=== PATIENT | male | born 1935 | race Caucasian/White ===

== ENCOUNTER → 2016-02-28 | Outpatient (CLI) | payer MEDICARE, BC ==
[~2016-02-28] MED LIST: AMBIEN5 M1 PO; ANTIVERT PO; CARVEDILOL6.25 MG PO; COLCHICINE PO; FUROSEMIDE20 MG PO; INDOCIN25 MG PO; LEVOTHYROXINE PO; LISINOPRIL10 MG PO; METFORMIN500 MG PO; OMEPRAZOLE20 MG PO; SIMVASTATIN20 MG PO; TRAZADONE HYDR100 MG PO; [UNRECOGNIZED DRUG - OTHER] PO
== END ==
LOC: LAB 08:48
DX: E11.9 Type 2 diabetes mellitus without complications (principal); N40.0 Benign prostatic hyperplasia without lower urinary tract symptoms; I10 Essential (primary) hypertension; E78.2 Mixed hyperlipidemia; E03.4 Atrophy of thyroid (acquired)

== ENCOUNTER → 2016-08-06 | Outpatient (CLI) | payer MEDICARE, BC ==
[2015-09-24 13:14] VITALS: BP 146/78
== END ==
LOC: LAB 10:11
DX: R53.82 Chronic fatigue, unspecified (principal)

== ENCOUNTER → 2016-09-02 | Outpatient (CLI) | payer MEDICARE, BC ==
[2015-09-24 13:14] VITALS: BP 146/78
== END ==
LOC: LAB 09:00
DX: E11.9 Type 2 diabetes mellitus without complications (principal); E78.2 Mixed hyperlipidemia; Z12.5 Encounter for screening for malignant neoplasm of prostate; E03.4 Atrophy of thyroid (acquired); M1A.9XX0 Chronic gout, unspecified, without tophus (tophi); N52.03 Combined arterial insufficiency and corporo-venous occlusive erectile dysfunction; I10 Essential (primary) hypertension; R20.2 Paresthesia of skin

== ENCOUNTER → 2016-09-27 | Outpatient (CLI) | payer MEDICARE, BC ==
[2015-09-24 13:14] VITALS: BP 146/78
== END ==
LOC: LAB 10:34
DX: E29.1 Testicular hypofunction (principal)

== ENCOUNTER → 2016-10-02 | Outpatient (CLI) | payer MEDICARE, BC ==
[2015-09-24 13:14] VITALS: BP 146/78
== END ==
LOC: CARDREHAB 08:36
DX: G47.33 Obstructive sleep apnea (adult) (pediatric) (principal); G47.10 Hypersomnia, unspecified; R06.83 Snoring; G47.36 Sleep related hypoventilation in conditions classified elsewhere; E66.3 Overweight; Z68.25 Body mass index [BMI] 25.0-25.9, adult
CPT/HCPCS: G0399

== ENCOUNTER → 2016-10-02 | Outpatient (CLI) | payer MEDICARE, BC ==
[2015-09-24 13:14] VITALS: BP 146/78
== END ==
LOC: RAD 13:00
DX: J43.8 Other emphysema (principal)

== ENCOUNTER → 2016-11-08 | Outpatient (CLI) | payer MEDICARE, BC ==
[2015-09-24 13:14] VITALS: BP 146/78
== END ==
LOC: CARDREHAB 10:45
DX: I25.10 Atherosclerotic heart disease of native coronary artery without angina pectoris (principal); R06.02 Shortness of breath
CPT/HCPCS: A9500

== ENCOUNTER → 2016-11-11 | Outpatient (CLI) | payer MEDICARE, BC ==
[2015-09-24 13:14] VITALS: BP 146/78
== END ==
LOC: RAD 12:00
DX: I25.10 Atherosclerotic heart disease of native coronary artery without angina pectoris (principal); R06.02 Shortness of breath; Z95.0 Presence of cardiac pacemaker; I34.0 Nonrheumatic mitral (valve) insufficiency; I07.1 Rheumatic tricuspid insufficiency

== ENCOUNTER → 2017-02-19 | Outpatient (CLI) | payer MEDICARE, BC ==
[2015-09-24 13:14] VITALS: BP 146/78
== END ==
LOC: RAD 12:09
DX: J06.9 Acute upper respiratory infection, unspecified (principal); R05 Cough; J98.4 Other disorders of lung

== ENCOUNTER → 2017-02-27 | Outpatient (CLI) | payer MEDICARE, BC ==
[2015-09-24 13:14] VITALS: BP 146/78
[2017-02-27 11:48] LABS: ALBUMIN 3.9 g/dL (3.5-5.0); BUN/CREATININE RATIO 16.6 (6.0-26.0); CALCIUM 9.3 mg/dL (8.4-10.2); POTASSIUM 4.2 mmol/L (3.6-5.0); TOTAL BILIRUBIN 0.7 mg/dL (0.2-1.3); TOTAL PROTEIN 7.3 g/dL (6.3-8.2)
[2017-02-27 12:29] LABS: HEMATOCRIT 46.2 % (42.0-52.0); HEMOGLOBIN 14.9 g/dL (13.5-18.0); MEAN CELL VOLUME 89 fl (78-100); MEAN CORPUSCULAR HEMOGLOBIN 29 pg (27-31); MEAN CORPUSCULAR HGB CONC 32 g/dL (33-37); MEAN PLATELET VOLUME 10.8 fl (7.4-10.4); PLATELET COUNT 220 K/mm3 (130-400); RED BLOOD COUNT 5.17 M/mm3 (4.20-5.60); RED CELL DISTRIBUTION WIDTH 14.1 % (11.5-14.5); WHITE BLOOD COUNT 6.1 K/mm3 (4.8-10.8)
[2017-02-27 12:30] LABS: LYMPHOCYTE 52 % (20-51); MONOCYTE 9 % (3-10); NEUTROPHILS 38 % (42-75)
== END ==
LOC: LAB 11:06
PROVIDERS: Internal Medicine
DX: E11.9 Type 2 diabetes mellitus without complications (principal); J98.4 Other disorders of lung; G47.33 Obstructive sleep apnea (adult) (pediatric)

== ENCOUNTER → 2017-10-21 | Outpatient (CLI) | payer MEDICARE, BC ==
[2015-09-24 13:14] VITALS: BP 146/78
[2017-10-21 10:05] LABS: EOS # 0.1 (0.04-0.40); EOS % 1.6 % (0.0-4.0); HEMATOCRIT 46.6 % (42.0-52.0); HEMOGLOBIN 15.4 g/dL (13.5-18.0); LYMPH# 3.3 (1.50-4.00); MEAN CELL VOLUME 89 fl (78-100); MEAN CORPUSCULAR HEMOGLOBIN 29 pg (27-31); MEAN CORPUSCULAR HGB CONC 33 g/dL (33-37); MEAN PLATELET VOLUME 10.3 fl (7.4-10.4); NEU # 4.2 (1.40-6.50); PLATELET COUNT 212 K/mm3 (130-400); RED BLOOD COUNT 5.24 M/mm3 (4.20-5.60); RED CELL DISTRIBUTION WIDTH 14.8 % (11.5-14.5); WHITE BLOOD COUNT 8.7 K/mm3 (4.8-10.8)
[2017-10-21 10:19] LABS: ALBUMIN 4.2 g/dL (3.5-5.0); POTASSIUM 4.1 mmol/L (3.6-5.0); TOTAL BILIRUBIN 0.5 mg/dL (0.2-1.3); TOTAL PROTEIN 7.4 g/dL (6.3-8.2)
[2017-10-21 10:48] LABS: ERYTHROCYTE SEDIMENTATION RATE 3 mm/hr (0-20)
[2017-10-21 11:03] LABS: URINE APPEARANCE CLEAR; URINE BILIRUBIN NEGATIVE (NEGATIVE); URINE BLOOD NEGATIVE (NEGATIVE); URINE COLOR YELLOW; URINE GLUCOSE NEGATIVE (NEGATIVE); URINE KETONE NEGATIVE (NEGATIVE); URINE LEUKOCYTE ESTERASE NEGATIVE (NEGATIVE); URINE NITRATE NEGATIVE (NEGATIVE); URINE PROTEIN(semi-quant) NEGATIVE (NEGATIVE); URINE UROBILINOGEN NORMAL (NORMAL); URINE WBC 0-1 /hpf (0-3)
[2017-10-22] LABS: TESTOSTERONE 167 ng/dL (221-716)
== END ==
LOC: LAB 09:50
PROVIDERS: Internal Medicine
DX: E11.9 Type 2 diabetes mellitus without complications (principal); I10 Essential (primary) hypertension; I45.3 Trifascicular block; E03.9 Hypothyroidism, unspecified; M10.9 Gout, unspecified

== ENCOUNTER 2018-01-08 11:00 | Outpatient (RCR) | payer MEDICARE, BC ==
[2015-09-24 13:14] VITALS: BP 146/78
== END 2018-01-08 11:30 | disposition home or self-care (01) ==
LOC: OT 11:00
DX: G56.01 Carpal tunnel syndrome, right upper limb (principal); G56.21 Lesion of ulnar nerve, right upper limb; R20.0 Anesthesia of skin

== ENCOUNTER → 2018-01-13 | Outpatient (CLI) | payer MEDICARE, BC ==
[2015-09-24 13:14] VITALS: BP 146/78
[2018-01-13 10:46] LABS: CALCIUM 9.2 mg/dL (8.4-10.2); POTASSIUM 4.5 mmol/L (3.6-5.0)
== END ==
LOC: RAD 10:17
PROVIDERS: Internal Medicine
DX: Q61.02 Congenital multiple renal cysts (principal); D35.02 Benign neoplasm of left adrenal gland; N28.89 Other specified disorders of kidney and ureter; E11.9 Type 2 diabetes mellitus without complications
CPT/HCPCS: Q9965

== ENCOUNTER 2018-01-25 10:17 | Emergency (ER) | payer MEDICARE, BC ==
[~2018-01-25] VITALS: Ht 182.9 cm; Wt 92.8 kg
[2018-01-25] MEDS ORDERED: KLONOPIN 1MG1 MG PO (10:27)
[2018-01-25] MEDS ORDERED: MYSOLINE50 M1 PO (10:27)
[2018-01-25] MEDS ORDERED: PRINIVIL10 M1 PO (10:28)
[2018-01-25] MEDS ORDERED: CEFDINIR300 MG PO (10:29)
[2018-01-25 10:49] LABS: HEMATOCRIT 42.8 % (42.0-52.0); HEMOGLOBIN 14.3 g/dL (13.5-18.0); MEAN CELL VOLUME 88 fl (78-100); MEAN CORPUSCULAR HEMOGLOBIN 30 pg (27-31); MEAN CORPUSCULAR HGB CONC 33 g/dL (33-37); MEAN PLATELET VOLUME 10.4 fl (7.4-10.4); PLATELET COUNT 205 K/mm3 (130-400); RED BLOOD COUNT 4.85 M/mm3 (4.20-5.60); RED CELL DISTRIBUTION WIDTH 14.1 % (11.5-14.5); WHITE BLOOD COUNT 8.1 K/mm3 (4.8-10.8)
[2018-01-25 11:00] LABS: ALBUMIN 3.8 g/dL (3.5-5.0); CALCIUM 8.7 mg/dL (8.4-10.2); POTASSIUM 3.6 mmol/L (3.6-5.0); TOTAL BILIRUBIN 0.6 mg/dL (0.2-1.3); TOTAL PROTEIN 6.4 g/dL (6.3-8.2)
[2018-01-25 11:13] LABS: LYMPHOCYTE 30 % (20-51); MONOCYTE 9 % (3-10); NEUTROPHILS 61 % (42-75)
[2018-01-25 11:18] LABS: URINE APPEARANCE CLEAR; URINE BILIRUBIN NEGATIVE (NEGATIVE); URINE BLOOD NEGATIVE (NEGATIVE); URINE COLOR YELLOW; URINE GLUCOSE NEGATIVE (NEGATIVE); URINE KETONE NEGATIVE (NEGATIVE); URINE LEUKOCYTE ESTERASE NEGATIVE (NEGATIVE); URINE MUCUS PRESENT (NOT PRESENT); URINE NITRATE NEGATIVE (NEGATIVE); URINE PROTEIN(semi-quant) TRACE mg/dL (NEGATIVE); URINE UROBILINOGEN NORMAL (NORMAL); URINE WBC 0-1 /hpf (0-3)
[2018-01-25 12:10] VITALS: BP 135/65
== END 2018-01-25 12:05 | disposition home or self-care (01) ==
LOC: ED 10:17
PROVIDERS: Family Medicine
DX: R53.83 Other fatigue (principal); R53.81 Other malaise; R05 Cough; I10 Essential (primary) hypertension; M10.9 Gout, unspecified; G47.30 Sleep apnea, unspecified; Z95.0 Presence of cardiac pacemaker; Z79.899 Other long term (current) drug therapy; K42.9 Umbilical hernia without obstruction or gangrene

== ENCOUNTER → 2018-03-27 | Outpatient (CLI) | payer MEDICARE, BC ==
[~2018-03-27] MED LIST changes: +CEFDINIR300 MG PO; +KLONOPIN 1MG1 MG PO; +MYSOLINE50 M1 PO; +PRINIVIL10 M1 PO
== END ==
LOC: LAB 09:52
DX: E29.1 Testicular hypofunction (principal)

== ENCOUNTER → 2018-04-15 | Outpatient (CLI) | payer MEDICARE, BC ==
[2018-04-16 00:10] LABS: FOLATE (FOLIC ACID) 6.7 ng/mL (7.0-31.4)
== END ==
LOC: LAB 09:01
PROVIDERS: Psychiatry & Neurology Neurology
DX: G56.03 Carpal tunnel syndrome, bilateral upper limbs (principal); G56.21 Lesion of ulnar nerve, right upper limb; G60.9 Hereditary and idiopathic neuropathy, unspecified

== ENCOUNTER 2018-04-26 10:19 | Outpatient (RCR) | payer MEDICARE, BC ==
[2018-04-25 10:52] VITALS: BP 172/86
[~2018-04-26] VITALS: Ht 182.9 cm; Wt 92.8 kg
[~2018-04-26 10:19] MED LIST changes: +COENZYME Q10100 M1 PO; +FISH OIL1 IU PO
[2018-04-26 10:20] VITALS: BP 143/85
== END 2018-04-26 15:00 | disposition home or self-care (01) ==
LOC: AMSURD 10:19
DX: E53.8 Deficiency of other specified B group vitamins (principal)
CPT/HCPCS: J3420

== ENCOUNTER 2018-05-07 13:00 | Outpatient (RCR) | payer MEDICARE, BC | END 2018-05-07 13:30 | disposition still patient (30) | LOC: OT 13:00 | DX: G56.21 Lesion of ulnar nerve, right upper limb (principal) ==

== ENCOUNTER → 2018-06-25 | Outpatient (CLI) | payer MEDICARE, BC ==
[2018-06-25 12:14] LABS: ALBUMIN 4.2 g/dL (3.5-5.0); CALCIUM 9.3 mg/dL (8.4-10.2); POTASSIUM 4.6 mmol/L (3.6-5.0); TOTAL BILIRUBIN 0.5 mg/dL (0.2-1.3); TOTAL PROTEIN 7.3 g/dL (6.3-8.2)
== END ==
LOC: LAB 11:12
PROVIDERS: Internal Medicine
DX: E11.9 Type 2 diabetes mellitus without complications (principal); I10 Essential (primary) hypertension; E29.1 Testicular hypofunction; I45.3 Trifascicular block

== ENCOUNTER → 2018-10-15 | Outpatient (CLI) | payer MEDICARE, BC ==
[2018-10-15 10:39] LABS: BASO # 0.1 (0.02-0.10); EOS # 0.2 (0.04-0.40); EOS % 2.4 % (0.0-4.0); HEMATOCRIT 44.4 % (42.0-52.0); HEMOGLOBIN 14.5 g/dL (13.5-18.0); MEAN CELL VOLUME 90 fl (78-100); MEAN CORPUSCULAR HEMOGLOBIN 29 pg (27-31); MEAN CORPUSCULAR HGB CONC 33 g/dL (33-37); MEAN PLATELET VOLUME 10.1 fl (7.4-10.4); MONO # 0.9 (0.20-0.80); NEU # 4.6 (1.40-6.50); PLATELET COUNT 226 K/mm3 (130-400); RED BLOOD COUNT 4.96 M/mm3 (4.20-5.60); RED CELL DISTRIBUTION WIDTH 16.2 % (11.5-14.5); WHITE BLOOD COUNT 8.8 K/mm3 (4.8-10.8)
[2018-10-15 10:42] LABS: ALBUMIN 3.8 g/dL (3.4-4.8); POTASSIUM 4.1 mmol/L (3.5-5.1)
[2018-10-15 10:43] LABS: CALCIUM 9.1 mg/dL (8.3-10.5)
[2018-10-15 10:45] LABS: TOTAL PROTEIN 7.3 g/dL (6.2-8.1)
[2018-10-15 10:46] LABS: TOTAL BILIRUBIN 0.6 mg/dL (0.2-1.2)
[2018-10-15 10:47] LABS: URINE APPEARANCE CLEAR; URINE BILIRUBIN NEGATIVE (NEGATIVE); URINE BLOOD NEGATIVE (NEGATIVE); URINE COLOR YELLOW; URINE GLUCOSE NEGATIVE (NEGATIVE); URINE KETONE NEGATIVE (NEGATIVE); URINE LEUKOCYTE ESTERASE NEGATIVE (NEGATIVE); URINE MUCUS PRESENT (NOT PRESENT); URINE NITRATE NEGATIVE (NEGATIVE); URINE PROTEIN(semi-quant) NEGATIVE (NEGATIVE); URINE UROBILINOGEN NORMAL (NORMAL); URINE WBC 0-1 /hpf (0-3)
[2018-10-15 12:01] LABS: ERYTHROCYTE SEDIMENTATION RATE 5 mm/hr (0-20)
== END ==
LOC: LAB 10:14
PROVIDERS: Internal Medicine
DX: Z12.5 Encounter for screening for malignant neoplasm of prostate (principal); E11.9 Type 2 diabetes mellitus without complications; I10 Essential (primary) hypertension; I45.3 Trifascicular block

== ENCOUNTER → 2018-10-19 | Outpatient (CLI) | payer MEDICARE, BC | LOC: LAB 09:55 | DX: E11.9 Type 2 diabetes mellitus without complications (principal); I10 Essential (primary) hypertension; I45.3 Trifascicular block ==

== ENCOUNTER → 2018-12-22 | Outpatient (CLI) | payer MEDICARE, BC | LOC: LAB 09:57 | DX: N28.89 Other specified disorders of kidney and ureter (principal) ==

== ENCOUNTER → 2018-12-23 | Outpatient (CLI) | payer MEDICARE, BC ==
[2018-12-22 10:21] LABS: POTASSIUM 4.4 mmol/L (3.5-5.1)
== END ==
LOC: RAD 08:42
PROVIDERS: Internal Medicine
DX: N28.1 Cyst of kidney, acquired (principal); N28.89 Other specified disorders of kidney and ureter; N28.9 Disorder of kidney and ureter, unspecified; M47.899 Other spondylosis, site unspecified
CPT/HCPCS: Q9967

== ENCOUNTER → 2019-04-06 | Outpatient (CLI) | payer MEDICARE, BC ==
[2019-04-06 11:34] LABS: EOS # 0.2 (0.04-0.40); EOS % 1.8 % (0.0-4.0); HEMATOCRIT 47.2 % (42.0-52.0); HEMOGLOBIN 14.9 g/dL (13.5-18.0); LYMPH# 2.8 (1.50-4.00); MEAN CELL VOLUME 91 fl (78-100); MEAN CORPUSCULAR HEMOGLOBIN 29 pg (27-31); MEAN CORPUSCULAR HGB CONC 32 g/dL (33-37); MEAN PLATELET VOLUME 10.2 fl (7.4-10.4); MONO # 0.9 (0.20-0.80); NEU # 4.9 (1.40-6.50); PLATELET COUNT 247 K/mm3 (130-400); RED CELL DISTRIBUTION WIDTH 14.6 % (11.5-14.5); WHITE BLOOD COUNT 8.8 K/mm3 (4.8-10.8)
[2019-04-06 11:41] LABS: ALBUMIN 4.1 g/dL (3.4-4.8); POTASSIUM 4.3 mmol/L (3.5-5.1)
[2019-04-06 11:42] LABS: CALCIUM 8.8 mg/dL (8.3-10.5)
[2019-04-06 11:43] LABS: TOTAL PROTEIN 7.4 g/dL (6.2-8.1)
[2019-04-06 11:45] LABS: TOTAL BILIRUBIN 0.3 mg/dL (0.2-1.2)
[2019-04-06 13:17] LABS: ERYTHROCYTE SEDIMENTATION RATE 13 mm/hr (0-20)
== END ==
LOC: LAB 11:14
PROVIDERS: Internal Medicine
DX: E11.9 Type 2 diabetes mellitus without complications (principal); I10 Essential (primary) hypertension; I45.3 Trifascicular block; K90.9 Intestinal malabsorption, unspecified; E53.8 Deficiency of other specified B group vitamins

== ENCOUNTER → 2019-10-05 | Outpatient (CLI) | payer MEDICARE, BC ==
[2019-10-05 12:00] LABS: EOS # 0.3 (0.04-0.40); HEMATOCRIT 44.2 % (42.0-52.0); HEMOGLOBIN 14.1 g/dL (13.5-18.0); MEAN CELL VOLUME 91 fl (78-100); MEAN CORPUSCULAR HEMOGLOBIN 29 pg (27-31); MEAN CORPUSCULAR HGB CONC 32 g/dL (33-37); MEAN PLATELET VOLUME 9.6 fl (7.4-10.4); MONO # 0.8 (0.20-0.80); NEU # 5.1 (1.40-6.50); PLATELET COUNT 242 K/mm3 (130-400); RED BLOOD COUNT 4.87 M/mm3 (4.20-5.60); RED CELL DISTRIBUTION WIDTH 14.8 % (11.5-14.5); WHITE BLOOD COUNT 9.2 K/mm3 (4.8-10.8)
[2019-10-05 12:07] LABS: ALBUMIN 3.9 g/dL (3.4-4.8); POTASSIUM 4.1 mmol/L (3.5-5.1)
[2019-10-05 12:08] LABS: CALCIUM 8.5 mg/dL (8.3-10.5)
[2019-10-05 12:11] LABS: TOTAL BILIRUBIN 0.2 mg/dL (0.2-1.2)
== END ==
LOC: LAB 11:44
PROVIDERS: Internal Medicine
DX: E11.9 Type 2 diabetes mellitus without complications (principal); I10 Essential (primary) hypertension; I45.3 Trifascicular block; K90.9 Intestinal malabsorption, unspecified

== ENCOUNTER → 2019-12-03 | Outpatient (CLI) | payer MEDICARE, BC ==
[~2019-12-03] MED LIST changes: +CIPRO250 M1 PO
[2019-12-03 09:35] LABS: CALCIUM 8.5 mg/dL (8.3-10.5)
== END ==
LOC: LAB 08:19
PROVIDERS: Internal Medicine
DX: N28.89 Other specified disorders of kidney and ureter (principal)

== ENCOUNTER → 2019-12-07 | Outpatient (CLI) | payer MEDICARE, BC ==
[~2019-12-07] MED LIST changes: -CIPRO250 M1 PO
== END ==
LOC: RAD 09:00
DX: K62.89 Other specified diseases of anus and rectum (principal); N28.89 Other specified disorders of kidney and ureter
CPT/HCPCS: Q9967

== ENCOUNTER → 2019-12-23 | Day surgery (SDC) | payer MEDICARE, BC | LOC: MSO 08:07 | DX: D12.3 Benign neoplasm of transverse colon (principal); K62.89 Other specified diseases of anus and rectum; K59.00 Constipation, unspecified; C20 Malignant neoplasm of rectum | CPT/HCPCS: 00811; J2704; J7030 ==

== ENCOUNTER → 2019-12-30 | Outpatient (CLI) | payer MEDICARE, BC | LOC: RAD 15:45 → VAS 15:45 | DX: I08.3 Combined rheumatic disorders of mitral, aortic and tricuspid valves (principal); I77.819 Aortic ectasia, unspecified site ==

== ENCOUNTER → 2020-01-21 | Outpatient (CLI) | payer MEDICARE, BC ==
[2020-01-21 14:28] LABS: EOS # 0.2 (0.04-0.40); EOS % 1.8 % (0.0-4.0); HEMATOCRIT 43.2 % (42.0-52.0); LYMPH# 2.8 (1.50-4.00); MEAN CELL VOLUME 89 fl (78-100); MEAN CORPUSCULAR HEMOGLOBIN 29 pg (27-31); MEAN CORPUSCULAR HGB CONC 32 g/dL (33-37); MEAN PLATELET VOLUME 9.5 fl (7.4-10.4); MONO # 0.9 (0.20-0.80); NEU # 5.5 (1.40-6.50); PLATELET COUNT 228 K/mm3 (130-400); RED BLOOD COUNT 4.85 M/mm3 (4.20-5.60); RED CELL DISTRIBUTION WIDTH 14.8 % (11.5-14.5); WHITE BLOOD COUNT 9.4 K/mm3 (4.8-10.8)
[2020-01-21 14:40] LABS: ALBUMIN 3.8 g/dL (3.4-4.8)
[2020-01-21 14:42] LABS: CALCIUM 8.5 mg/dL (8.3-10.5)
[2020-01-21 14:43] LABS: TOTAL PROTEIN 6.6 g/dL (6.2-8.1)
[2020-01-21 14:45] LABS: TOTAL BILIRUBIN 0.2 mg/dL (0.2-1.2)
== END ==
LOC: LAB 14:02
PROVIDERS: Internal Medicine
DX: C20 Malignant neoplasm of rectum (principal)

== ENCOUNTER → 2020-01-24 | Outpatient (CLI) | payer MEDICARE, BC | LOC: RAD 13:00 | DX: C20 Malignant neoplasm of rectum (principal); R91.8 Other nonspecific abnormal finding of lung field | CPT/HCPCS: Q9967 ==

== ENCOUNTER → 2020-02-04 | Outpatient (CLI) | payer MEDICARE, BC ==
[~2020-02-04] VITALS: Ht 182.9 cm; Wt 92.8 kg
--- NOTE | 2020-02-04 12:45 | NUR ---
Pt arrived ambulatory for outpatient treatment. Here to have chemo pump disconnected and to get portacath flushed. Vss. Chemo pump showing "END" on the screen. Using chemo gloves and a chemo absorption pad under IV tubing, disconnected IV tubing from the portacath and capped the end of the IV tubing. Flushed the portacath with 10ml NS and 500units of Heparin. Obtained brisk blood return prior to flushing. After Heparin flush, DC'd the Flores needle from port and covered with bandaid. Port site appears to be fairly new, with sutures in place and incision intact. Some bruising noted at incision line. Removed the empty chemo bag from the pump and placed it in the yellow chemo disposal receptacle in dirty utility room. Pump was placed back in the carrying case and given back to patient. Patient left hospital ambulatory with his .
[2020-02-04 13:10] VITALS: BP 167/79
== END ==
LOC: AMSURD 12:27
DX: C20 Malignant neoplasm of rectum (principal)
CPT/HCPCS: J1644

== ENCOUNTER → 2020-02-14 | Outpatient (CLI) | payer MEDICARE, BC ==
[2020-02-04 13:10] VITALS: BP 167/79
[2020-02-14 10:14] LABS: EOS # 0.2 (0.04-0.40); EOS % 3.1 % (0.0-4.0); HEMATOCRIT 42.7 % (42.0-52.0); HEMOGLOBIN 13.8 g/dL (13.5-18.0); LYMPH# 2.5 (1.50-4.00); MEAN CELL VOLUME 91 fl (78-100); MEAN CORPUSCULAR HEMOGLOBIN 29 pg (27-31); MEAN CORPUSCULAR HGB CONC 32 g/dL (33-37); MONO # 0.7 (0.20-0.80); NEU # 2.4 (1.40-6.50); PLATELET COUNT 201 K/mm3 (130-400); RED BLOOD COUNT 4.72 M/mm3 (4.20-5.60); RED CELL DISTRIBUTION WIDTH 14.9 % (11.5-14.5); WHITE BLOOD COUNT 5.8 K/mm3 (4.8-10.8)
[2020-02-14 10:18] LABS: ALBUMIN 3.7 g/dL (3.4-4.8); POTASSIUM 3.9 mmol/L (3.5-5.1)
[2020-02-14 10:19] LABS: CALCIUM 8.6 mg/dL (8.3-10.5)
[2020-02-14 10:20] LABS: TOTAL PROTEIN 6.4 g/dL (6.2-8.1)
[2020-02-14 10:22] LABS: TOTAL BILIRUBIN 0.2 mg/dL (0.2-1.2)
== END ==
LOC: LAB 09:43
PROVIDERS: Internal Medicine
DX: C20 Malignant neoplasm of rectum (principal)

== ENCOUNTER → 2020-02-18 | Outpatient (CLI) | payer MEDICARE, BC ==
[~2020-02-18] VITALS: Ht 182.9 cm; Wt 92.8 kg
[~2020-02-18] MED LIST changes: +CIPRO250 M1 PO
[2020-02-18 13:15] VITALS: BP 180/85
== END ==
LOC: AMSURD 12:26
DX: C20 Malignant neoplasm of rectum (principal)

== ENCOUNTER → 2020-02-24 | Outpatient (CLI) | payer MEDICARE, BC ==
[2020-02-18 13:15] VITALS: BP 180/85
[2020-02-24 10:57] LABS: HEMATOCRIT 42.3 % (42.0-52.0); HEMOGLOBIN 13.8 g/dL (13.5-18.0); MEAN CELL VOLUME 90 fl (78-100); MEAN CORPUSCULAR HEMOGLOBIN 30 pg (27-31); MEAN CORPUSCULAR HGB CONC 33 g/dL (33-37); MEAN PLATELET VOLUME 9.5 fl (7.4-10.4); PLATELET COUNT 248 K/mm3 (130-400); RED BLOOD COUNT 4.68 M/mm3 (4.20-5.60); RED CELL DISTRIBUTION WIDTH 15.1 % (11.5-14.5)
[2020-02-24 11:10] LABS: ALBUMIN 3.8 g/dL (3.4-4.8); POTASSIUM 4.6 mmol/L (3.5-5.1)
[2020-02-24 11:11] LABS: CALCIUM 8.7 mg/dL (8.3-10.5)
[2020-02-24 11:13] LABS: TOTAL PROTEIN 6.8 g/dL (6.2-8.1)
[2020-02-24 11:14] LABS: TOTAL BILIRUBIN 0.2 mg/dL (0.2-1.2)
[2020-02-24 11:33] LABS: LYMPHOCYTE 39 % (20-51); MONOCYTE 16 % (3-10); NEUTROPHILS 41 % (42-75)
== END ==
LOC: LAB 10:29
PROVIDERS: Internal Medicine
DX: C20 Malignant neoplasm of rectum (principal)

== ENCOUNTER → 2020-03-03 | Outpatient (CLI) | payer MEDICARE, BC ==
[2020-02-18 13:15] VITALS: BP 180/85
--- NOTE | 2020-03-03 11:00 | NUR ---
PATIENT ARRIVED TO OUTPATIENT TO HAVE CHEMO PUMP DISCONTINUED. PORT NEEDLE DE-ACCESSED AND CHEMO PUMP RETURNED TO PATIENT PER ORDER.
== END ==
LOC: AMSURD 11:31
DX: Z45.2 Encounter for adjustment and management of vascular access device (principal)

== ENCOUNTER 2020-03-08 09:04 | Emergency (ER) | payer MEDICARE, BC ==
[~2020-03-08 09:04] MED LIST changes: -CIPRO250 M1 PO
[2020-03-08 11:37] LABS: URINE COLOR DK YELLOW
[2020-03-08 11:38] LABS: URINE APPEARANCE HAZY; URINE BILIRUBIN NEGATIVE (NEGATIVE); URINE BLOOD NEGATIVE (NEGATIVE); URINE GLUCOSE NEGATIVE (NEGATIVE); URINE KETONE NEGATIVE (NEGATIVE); URINE LEUKOCYTE ESTERASE TRACE (NEGATIVE); URINE NITRATE NEGATIVE (NEGATIVE); URINE PROTEIN(semi-quant) TRACE mg/dL (NEGATIVE); URINE UROBILINOGEN NORMAL (NORMAL)
[2020-03-08 11:39] LABS: URINE MUCUS PRESENT (NOT PRESENT)
[2020-03-08] MEDS ORDERED: CIPRO250 M1 PO (11:58)
[2020-03-08 12:01] VITALS: BP 120/62
[2020-03-08 14:12] LABS: GLUCOSE 220 mg/dL (75-110); POTASSIUM 4.4 mmol/L (3.5-5.1); SODIUM 134 mmol/L (136-145)
[2020-03-08 14:13] LABS: ALBUMIN 3.6 g/dL (3.4-4.8); ALT/SGPT 55 U/L (0-55); AST-SGOT 34 U/L (5-34); CALCIUM 8.3 mg/dL (8.3-10.5); CARBON DIOXIDE 21 mmol/L (23-31); TOTAL PROTEIN 6.4 g/dL (6.2-8.1); TROPONIN-I < 0.03 ng/mL (<0.030)
[2020-03-08 14:23] LABS: HEMATOCRIT 38.8 % (42.0-52.0); HEMOGLOBIN 12.7 g/dL (13.5-18.0); MEAN CELL VOLUME 89 fl (78-100); MEAN CORPUSCULAR HEMOGLOBIN 29 pg (27-31); MEAN CORPUSCULAR HGB CONC 33 g/dL (33-37); RED BLOOD COUNT 4.35 M/mm3 (4.20-5.60)
[2020-03-08 14:24] LABS: EOS % 0.1 % (0.0-4.0); LYMPH# 1.7 (1.50-4.00); MEAN PLATELET VOLUME 10.1 fl (7.4-10.4); MONO # 0.6 (0.20-0.80); NEU # 5.8 (1.40-6.50); PLATELET COUNT 142 K/mm3 (130-400)
== END 2020-03-08 12:08 | disposition home or self-care (01) ==
LOC: ED 09:20
PROVIDERS: Physician Assistant
DX: R07.89 Other chest pain (principal); N39.0 Urinary tract infection, site not specified; I10 Essential (primary) hypertension; E03.9 Hypothyroidism, unspecified; Z95.0 Presence of cardiac pacemaker; Z85.048 Personal history of other malignant neoplasm of rectum, rectosigmoid junction, and anus; Z79.890 Hormone replacement therapy; Z79.899 Other long term (current) drug therapy

== ENCOUNTER → 2020-03-11 | Outpatient (CLI) | payer MEDICARE, BC ==
[2020-03-08 12:01] VITALS: BP 120/62
[~2020-03-11] MED LIST changes: +CIPRO250 M1 PO
[2020-03-11 10:12] LABS: EOS # 0.2 (0.04-0.40); EOS % 2.9 % (0.0-4.0); HEMATOCRIT 43.8 % (42.0-52.0); LYMPH# 4.1 (1.50-4.00); MEAN CELL VOLUME 91 fl (78-100); MEAN CORPUSCULAR HEMOGLOBIN 29 pg (27-31); MEAN CORPUSCULAR HGB CONC 32 g/dL (33-37); MEAN PLATELET VOLUME 9.9 fl (7.4-10.4); MONO # 0.9 (0.20-0.80); NEU # 2.7 (1.40-6.50); PLATELET COUNT 175 K/mm3 (130-400); RED BLOOD COUNT 4.79 M/mm3 (4.20-5.60); RED CELL DISTRIBUTION WIDTH 15.9 % (11.5-14.5)
[2020-03-11 10:26] LABS: ALBUMIN 3.9 g/dL (3.4-4.8)
[2020-03-11 10:27] LABS: POTASSIUM 4.3 mmol/L (3.5-5.1)
[2020-03-11 10:28] LABS: CALCIUM 8.4 mg/dL (8.3-10.5)
[2020-03-11 10:29] LABS: TOTAL PROTEIN 6.7 g/dL (6.2-8.1)
[2020-03-11 10:31] LABS: TOTAL BILIRUBIN 0.4 mg/dL (0.2-1.2)
== END ==
LOC: LAB 09:40
PROVIDERS: Internal Medicine
DX: C20 Malignant neoplasm of rectum (principal)

== ENCOUNTER → 2020-03-17 | Outpatient (CLI) | payer MEDICARE, BC ==
[~2020-03-17] VITALS: Ht 182.9 cm; Wt 92.8 kg
[2020-03-17 11:46] VITALS: BP 144/94
== END ==
LOC: AMSURD 11:27
DX: Z45.2 Encounter for adjustment and management of vascular access device (principal)

== ENCOUNTER → 2020-03-24 | Outpatient (CLI) | payer MEDICARE, BC ==
[2020-03-17 11:46] VITALS: BP 144/94
[2020-03-24 13:52] LABS: EOS # 0.1 (0.04-0.40); EOS % 1.2 % (0.0-4.0); HEMATOCRIT 40.4 % (42.0-52.0); HEMOGLOBIN 13.1 g/dL (13.5-18.0); LYMPH# 2.7 (1.50-4.00); MEAN CELL VOLUME 92 fl (78-100); MEAN CORPUSCULAR HEMOGLOBIN 30 pg (27-31); MEAN CORPUSCULAR HGB CONC 32 g/dL (33-37); MEAN PLATELET VOLUME 9.3 fl (7.4-10.4); MONO # 0.6 (0.20-0.80); NEU # 2.3 (1.40-6.50); PLATELET COUNT 207 K/mm3 (130-400); WHITE BLOOD COUNT 5.7 K/mm3 (4.8-10.8)
[2020-03-24 13:56] LABS: ALBUMIN 3.6 g/dL (3.4-4.8); POTASSIUM 3.9 mmol/L (3.5-5.1)
[2020-03-24 13:58] LABS: CALCIUM 8.5 mg/dL (8.3-10.5)
[2020-03-24 13:59] LABS: TOTAL PROTEIN 6.7 g/dL (6.2-8.1)
[2020-03-24 14:01] LABS: TOTAL BILIRUBIN 0.3 mg/dL (0.2-1.2)
== END ==
LOC: LAB 13:31
PROVIDERS: Internal Medicine
DX: C20 Malignant neoplasm of rectum (principal)

== ENCOUNTER → 2020-03-31 | Outpatient (CLI) | payer MEDICARE, BC ==
[~2020-03-31] VITALS: Ht 182.9 cm; Wt 92.8 kg
[2020-03-31 13:10] VITALS: BP 144/90
== END ==
LOC: AMSURD 13:04
DX: C20 Malignant neoplasm of rectum (principal)
CPT/HCPCS: J1644

== ENCOUNTER → 2020-04-05 | Outpatient (CLI) | payer MEDICARE, BC ==
[2020-03-31 13:10] VITALS: BP 144/90
== END ==
LOC: RAD 08:49
DX: C20 Malignant neoplasm of rectum (principal); R91.1 Solitary pulmonary nodule
CPT/HCPCS: Q9967

== ENCOUNTER → 2020-04-07 | Outpatient (CLI) | payer MEDICARE, BC ==
[2020-03-31 13:10] VITALS: BP 144/90
[2020-04-07 13:40] LABS: EOS # 0.1 (0.04-0.40); EOS % 2.2 % (0.0-4.0); HEMATOCRIT 39.6 % (42.0-52.0); HEMOGLOBIN 12.7 g/dL (13.5-18.0); MEAN CELL VOLUME 93 fl (78-100); MEAN CORPUSCULAR HEMOGLOBIN 30 pg (27-31); MEAN CORPUSCULAR HGB CONC 32 g/dL (33-37); MEAN PLATELET VOLUME 9.6 fl (7.4-10.4); MONO # 0.7 (0.20-0.80); NEU # 2.5 (1.40-6.50); PLATELET COUNT 209 K/mm3 (130-400); RED BLOOD COUNT 4.24 M/mm3 (4.20-5.60); RED CELL DISTRIBUTION WIDTH 17.4 % (11.5-14.5); WHITE BLOOD COUNT 6.4 K/mm3 (4.8-10.8)
[2020-04-07 13:49] LABS: ALBUMIN 3.7 g/dL (3.4-4.8); POTASSIUM 3.5 mmol/L (3.5-5.1)
[2020-04-07 13:51] LABS: CALCIUM 8.4 mg/dL (8.3-10.5)
[2020-04-07 13:52] LABS: TOTAL PROTEIN 6.6 g/dL (6.2-8.1)
[2020-04-07 13:54] LABS: TOTAL BILIRUBIN 0.2 mg/dL (0.2-1.2)
== END ==
LOC: LAB 13:11
PROVIDERS: Internal Medicine
DX: C20 Malignant neoplasm of rectum (principal)

== ENCOUNTER → 2020-04-14 | Outpatient (CLI) | payer MEDICARE, BC ==
[~2020-04-14] MED LIST changes: +GOOD NEIGHBOR325 MG PO; +LEVOTHYROXINE0.05 MG PO; +NORCO 325 MG-7.1 TA1 PO; +NORVASC2.5 MG PO; +PRINIVIL20 M1 PO; +PROBENECID AND1 TAB PO; +PROTONIX20 M1 PO
[2020-04-14 13:05] VITALS: BP 134/66
== END ==
LOC: AMSURD 13:05
DX: C20 Malignant neoplasm of rectum (principal)
CPT/HCPCS: J1644

== ENCOUNTER → 2020-04-21 | Outpatient (CLI) | payer MEDICARE, BC ==
[2020-04-14 13:05] VITALS: BP 134/66
[2020-04-21 13:57] LABS: EOS # 0.2 (0.04-0.40); EOS % 3.2 % (0.0-4.0); HEMATOCRIT 39.3 % (42.0-52.0); HEMOGLOBIN 12.6 g/dL (13.5-18.0); MEAN CELL VOLUME 95 fl (78-100); MEAN CORPUSCULAR HEMOGLOBIN 30 pg (27-31); MEAN CORPUSCULAR HGB CONC 32 g/dL (33-37); MEAN PLATELET VOLUME 9.2 fl (7.4-10.4); MONO # 0.7 (0.20-0.80); NEU # 2.6 (1.40-6.50); PLATELET COUNT 175 K/mm3 (130-400); RED BLOOD COUNT 4.16 M/mm3 (4.20-5.60); RED CELL DISTRIBUTION WIDTH 18.4 % (11.5-14.5); WHITE BLOOD COUNT 6.5 K/mm3 (4.8-10.8)
[2020-04-21 14:13] LABS: ALBUMIN 3.7 g/dL (3.4-4.8); POTASSIUM 3.8 mmol/L (3.5-5.1)
[2020-04-21 14:14] LABS: CALCIUM 8.6 mg/dL (8.3-10.5)
[2020-04-21 14:16] LABS: TOTAL PROTEIN 6.8 g/dL (6.2-8.1)
[2020-04-21 14:17] LABS: TOTAL BILIRUBIN 0.3 mg/dL (0.2-1.2)
== END ==
LOC: LAB 13:40
PROVIDERS: Internal Medicine
DX: C20 Malignant neoplasm of rectum (principal)

== ENCOUNTER → 2020-04-28 | Outpatient (CLI) | payer MEDICARE, BC ==
[2020-04-28 11:18] VITALS: BP 177/86
== END ==
LOC: AMSURD 11:19
DX: C20 Malignant neoplasm of rectum (principal)

== ENCOUNTER → 2020-05-05 | Outpatient (CLI) | payer MEDICARE, BC ==
[2020-04-28 11:18] VITALS: BP 177/86
[2020-05-05 13:37] LABS: HEMATOCRIT 39.6 % (42.0-52.0); HEMOGLOBIN 12.7 g/dL (13.5-18.0); MEAN CELL VOLUME 96 fl (78-100); MEAN CORPUSCULAR HEMOGLOBIN 31 pg (27-31); MEAN CORPUSCULAR HGB CONC 32 g/dL (33-37); MEAN PLATELET VOLUME 9.9 fl (7.4-10.4); PLATELET COUNT 152 K/mm3 (130-400); RED BLOOD COUNT 4.11 M/mm3 (4.20-5.60); RED CELL DISTRIBUTION WIDTH 18.6 % (11.5-14.5)
[2020-05-05 13:56] LABS: LYMPHOCYTE 51 % (20-51); MONOCYTE 13 % (3-10); NEUTROPHILS 34 % (42-75)
[2020-05-05 14:31] LABS: ALBUMIN 3.7 g/dL (3.4-4.8); POTASSIUM 3.5 mmol/L (3.5-5.1)
[2020-05-05 14:32] LABS: CALCIUM 8.9 mg/dL (8.3-10.5)
[2020-05-05 14:35] LABS: TOTAL BILIRUBIN 0.3 mg/dL (0.2-1.2)
== END ==
LOC: LAB 13:13
PROVIDERS: Internal Medicine
DX: C20 Malignant neoplasm of rectum (principal)

== ENCOUNTER → 2020-05-12 | Outpatient (CLI) | payer MEDICARE, BC ==
[2020-05-12 15:02] VITALS: BP 155/81
--- NOTE | 2020-05-12 15:07 | NUR ---
Pt stated that he wanted to remove the access to the portacath because he does not have any chemo for 2 weeks. Deaccessed per request and returned pump to patient.
== END ==
LOC: AMSURD 14:16 → EDSTATUS 14:24
DX: C20 Malignant neoplasm of rectum (principal)
CPT/HCPCS: J1644

== ENCOUNTER → 2020-05-17 | Outpatient (CLI) | payer MEDICARE, BC ==
[2020-05-12 15:02] VITALS: BP 155/81
[2020-05-17 09:18] LABS: ALBUMIN 3.7 g/dL (3.4-4.8)
[2020-05-17 09:20] LABS: CALCIUM 9.2 mg/dL (8.3-10.5)
[2020-05-17 09:21] LABS: TOTAL PROTEIN 7.1 g/dL (6.2-8.1)
[2020-05-17 09:23] LABS: TOTAL BILIRUBIN 0.5 mg/dL (0.2-1.2)
[2020-05-17 09:52] LABS: MEAN CELL VOLUME 98 fl (78-100); MEAN CORPUSCULAR HEMOGLOBIN 32 pg (27-31); MEAN CORPUSCULAR HGB CONC 33 g/dL (33-37); MEAN PLATELET VOLUME 10.2 fl (7.4-10.4); PLATELET COUNT 180 K/mm3 (130-400); RED BLOOD COUNT 4.09 M/mm3 (4.20-5.60); RED CELL DISTRIBUTION WIDTH 17.4 % (11.5-14.5); WHITE BLOOD COUNT 4.8 K/mm3 (4.8-10.8)
[2020-05-17 10:17] LABS: LYMPHOCYTE 63 % (20-51); METAMYELOCYTE 1 % (0-0); MONOCYTE 7 % (3-10); NEUTROPHILS 25 % (42-75)
== END ==
LOC: LAB 08:40 → RAD 08:40
PROVIDERS: Internal Medicine
DX: R91.8 Other nonspecific abnormal finding of lung field (principal); E27.8 Other specified disorders of adrenal gland; N28.9 Disorder of kidney and ureter, unspecified; J84.10 Pulmonary fibrosis, unspecified; C20 Malignant neoplasm of rectum; Z95.9 Presence of cardiac and vascular implant and graft, unspecified
CPT/HCPCS: Q9967

== ENCOUNTER → 2020-06-01 | Outpatient (CLI) | payer MEDICARE, BC ==
[2020-05-12 15:02] VITALS: BP 155/81
[2020-06-01 12:42] LABS: HEMATOCRIT 43.8 % (42.0-52.0); HEMOGLOBIN 14.2 g/dL (13.5-18.0); MEAN CELL VOLUME 100 fl (78-100); MEAN CORPUSCULAR HEMOGLOBIN 33 pg (27-31); MEAN CORPUSCULAR HGB CONC 32 g/dL (33-37); MEAN PLATELET VOLUME 9.8 fl (7.4-10.4); PLATELET COUNT 191 K/mm3 (130-400); RED BLOOD COUNT 4.37 M/mm3 (4.20-5.60); RED CELL DISTRIBUTION WIDTH 16.3 % (11.5-14.5); WHITE BLOOD COUNT 6.4 K/mm3 (4.8-10.8)
[2020-06-01 13:07] LABS: LYMPHOCYTE 45 % (20-51); MONOCYTE 18 % (3-10); NEUTROPHILS 37 % (42-75); TARGET CELLS 2+
== END ==
LOC: LAB 12:30
PROVIDERS: Radiology Radiation Oncology
DX: C21.8 Malignant neoplasm of overlapping sites of rectum, anus and anal canal (principal)

== ENCOUNTER → 2020-06-12 | Outpatient (CLI) | payer MEDICARE, BC ==
[2020-05-12 15:02] VITALS: BP 155/81
[2020-06-12 14:25] LABS: HEMATOCRIT 41.7 % (42.0-52.0); HEMOGLOBIN 13.2 g/dL (13.5-18.0); MEAN CELL VOLUME 101 fl (78-100); MEAN CORPUSCULAR HEMOGLOBIN 32 pg (27-31); MEAN CORPUSCULAR HGB CONC 32 g/dL (33-37); MEAN PLATELET VOLUME 9.9 fl (7.4-10.4); PLATELET COUNT 152 K/mm3 (130-400); RED BLOOD COUNT 4.12 M/mm3 (4.20-5.60); RED CELL DISTRIBUTION WIDTH 14.7 % (11.5-14.5); WHITE BLOOD COUNT 5.4 K/mm3 (4.8-10.8)
[2020-06-12 14:32] LABS: POTASSIUM 4.4 mmol/L (3.5-5.1)
[2020-06-12 14:33] LABS: ALBUMIN 3.7 g/dL (3.4-4.8)
[2020-06-12 14:34] LABS: CALCIUM 8.9 mg/dL (8.3-10.5)
[2020-06-12 14:35] LABS: TOTAL PROTEIN 6.9 g/dL (6.2-8.1)
[2020-06-12 14:37] LABS: TOTAL BILIRUBIN 0.2 mg/dL (0.2-1.2)
[2020-06-12 15:37] LABS: NEUTROPHILS 56 % (42-75)
[2020-06-12 15:38] LABS: LYMPHOCYTE 27 % (20-51); MONOCYTE 15 % (3-10)
== END ==
LOC: LAB 14:05
PROVIDERS: Internal Medicine
DX: Z12.5 Encounter for screening for malignant neoplasm of prostate (principal); E11.9 Type 2 diabetes mellitus without complications; E78.5 Hyperlipidemia, unspecified; E03.4 Atrophy of thyroid (acquired); M10.9 Gout, unspecified

== ENCOUNTER 2020-06-20 02:17 | Emergency (ER) | payer MEDICARE, BC ==
[~2020-06-20 02:17] MED LIST changes: -GOOD NEIGHBOR325 MG PO; -LEVOTHYROXINE0.05 MG PO; -NORCO 325 MG-7.1 TA1 PO; -NORVASC2.5 MG PO; -PRINIVIL20 M1 PO; -PROBENECID AND1 TAB PO; -PROTONIX20 M1 PO
[2020-06-20] MEDS ORDERED: LEVOTHYROXINE0.05 MG PO (02:46)
[2020-06-20] MEDS ORDERED: PROBENECID AND1 TAB PO (02:47)
[2020-06-20 03:13] LABS: HEMATOCRIT 38.2 % (42.0-52.0); HEMOGLOBIN 12.2 g/dL (13.5-18.0); MEAN CELL VOLUME 100 fl (78-100); MEAN CORPUSCULAR HEMOGLOBIN 32 pg (27-31); MEAN CORPUSCULAR HGB CONC 32 g/dL (33-37); MEAN PLATELET VOLUME 9.9 fl (7.4-10.4); PLATELET COUNT 169 K/mm3 (130-400); RED BLOOD COUNT 3.83 M/mm3 (4.20-5.60); RED CELL DISTRIBUTION WIDTH 13.8 % (11.5-14.5); WHITE BLOOD COUNT 5.8 K/mm3 (4.8-10.8)
[2020-06-20 03:20] LABS: ALBUMIN 3.4 g/dL (3.4-4.8)
[2020-06-20 03:21] LABS: POTASSIUM 3.8 mmol/L (3.5-5.1)
[2020-06-20 03:22] LABS: CALCIUM 8.5 mg/dL (8.3-10.5)
[2020-06-20 03:23] LABS: TOTAL PROTEIN 6.4 g/dL (6.2-8.1)
[2020-06-20 03:25] LABS: TOTAL BILIRUBIN 0.3 mg/dL (0.2-1.2)
[2020-06-20 03:27] LABS: URINE APPEARANCE CLEAR; URINE COLOR YELLOW
[2020-06-20 03:28] LABS: URINE BILIRUBIN NEGATIVE (NEGATIVE); URINE BLOOD NEGATIVE (NEGATIVE); URINE GLUCOSE NEGATIVE (NEGATIVE); URINE KETONE NEGATIVE (NEGATIVE); URINE LEUKOCYTE ESTERASE TRACE (NEGATIVE); URINE NITRATE NEGATIVE (NEGATIVE); URINE PROTEIN(semi-quant) TRACE mg/dL (NEGATIVE); URINE UROBILINOGEN NORMAL (NORMAL)
[2020-06-20 03:37] LABS: LYMPHOCYTE 19 % (20-51); MONOCYTE 14 % (3-10); NEUTROPHILS 65 % (42-75)
[2020-06-20 03:52] VITALS: BP 141/72
== END 2020-06-20 03:52 | disposition home or self-care (01) ==
LOC: ED 02:17
PROVIDERS: Nurse Practitioner
DX: R53.81 Other malaise (principal); I10 Essential (primary) hypertension; E03.9 Hypothyroidism, unspecified; Z79.890 Hormone replacement therapy; Z79.899 Other long term (current) drug therapy

== ENCOUNTER → 2020-06-27 | Outpatient (CLI) | payer MEDICARE, BC ==
[2020-06-20 03:52] VITALS: BP 141/72
[~2020-06-27] MED LIST changes: +GOOD NEIGHBOR325 MG PO; +LEVOTHYROXINE0.05 MG PO; +NORCO 325 MG-7.1 TA1 PO; +NORVASC2.5 MG PO; +PRINIVIL20 M1 PO; +PROBENECID AND1 TAB PO; +PROTONIX20 M1 PO
[2020-06-27 09:57] LABS: EOS # 0.2 (0.04-0.40); EOS % 4.3 % (0.0-4.0); HEMATOCRIT 43.7 % (42.0-52.0); HEMOGLOBIN 13.8 g/dL (13.5-18.0); LYMPH# 1.8 (1.50-4.00); MEAN CELL VOLUME 99 fl (78-100); MEAN CORPUSCULAR HEMOGLOBIN 31 pg (27-31); MEAN CORPUSCULAR HGB CONC 32 g/dL (33-37); MEAN PLATELET VOLUME 9.3 fl (7.4-10.4); MONO # 0.7 (0.20-0.80); NEU # 2.9 (1.40-6.50); PLATELET COUNT 254 K/mm3 (130-400); RED BLOOD COUNT 4.41 M/mm3 (4.20-5.60); RED CELL DISTRIBUTION WIDTH 13.3 % (11.5-14.5); WHITE BLOOD COUNT 5.6 K/mm3 (4.8-10.8)
[2020-06-27 10:18] LABS: ALBUMIN 3.6 g/dL (3.4-4.8)
[2020-06-27 10:19] LABS: POTASSIUM 4.2 mmol/L (3.5-5.1)
[2020-06-27 10:20] LABS: CALCIUM 8.9 mg/dL (8.3-10.5)
[2020-06-27 10:23] LABS: TOTAL BILIRUBIN 0.3 mg/dL (0.2-1.2)
== END ==
LOC: LAB 09:44
PROVIDERS: Internal Medicine
DX: I95.1 Orthostatic hypotension (principal)

== ENCOUNTER → 2020-08-30 | Outpatient (CLI) | payer MEDICARE, BC ==
[2020-08-30 10:02] LABS: BASO # 0.01 (0.02-0.10); EOS # 0.22 (0.04-0.40); HEMATOCRIT 41.9 % (42.0-52.0); HEMOGLOBIN 13.9 g/dL (13.5-18.0); LYMPH# 2.22 (1.50-4.00); MEAN CELL VOLUME 92 fl (78-100); MEAN CORPUSCULAR HEMOGLOBIN 31 pg (27-31); MEAN CORPUSCULAR HGB CONC 33 g/dL (33-37); MEAN PLATELET VOLUME 9.4 fl (7.4-10.4); MONO # 0.56 (0.20-0.80); NEU # 2.47 (1.40-6.50); PLATELET COUNT 189 K/mm3 (130-400); RED BLOOD COUNT 4.55 M/mm3 (4.20-5.60); RED CELL DISTRIBUTION WIDTH 13.1 % (11.5-14.5); WHITE BLOOD COUNT 5.5 K/mm3 (4.8-10.8)
[2020-08-30 10:07] LABS: ALBUMIN 3.7 g/dL (3.4-4.8)
[2020-08-30 10:09] LABS: CALCIUM 8.9 mg/dL (8.3-10.5)
[2020-08-30 10:10] LABS: TOTAL PROTEIN 6.9 g/dL (6.2-8.1)
[2020-08-30 10:12] LABS: TOTAL BILIRUBIN 0.4 mg/dL (0.2-1.2)
== END ==
LOC: LAB 09:26
PROVIDERS: Internal Medicine
DX: C20 Malignant neoplasm of rectum (principal)

== ENCOUNTER → 2020-08-31 | Outpatient (CLI) | payer MEDICARE, BC | LOC: RAD 07:57 | DX: C20 Malignant neoplasm of rectum (principal); R91.1 Solitary pulmonary nodule; J84.10 Pulmonary fibrosis, unspecified; E27.9 Disorder of adrenal gland, unspecified | CPT/HCPCS: Q9967 ==

== ENCOUNTER → 2020-09-14 | Outpatient (CLI) | payer MEDICARE, BC | LOC: LAB 12:14 | DX: E11.9 Type 2 diabetes mellitus without complications (principal); K90.9 Intestinal malabsorption, unspecified ==

== ENCOUNTER 2020-10-21 20:23 | Emergency (ER) | payer MEDICARE, BC ==
[~2020-10-21 20:23] MED LIST changes: -GOOD NEIGHBOR325 MG PO; -NORCO 325 MG-7.1 TA1 PO; -NORVASC2.5 MG PO; -PRINIVIL20 M1 PO; -PROTONIX20 M1 PO
[2020-10-21 23:50] VITALS: BP 157/97
== END 2020-10-21 23:50 | disposition short-term general hospital (02) ==
LOC: ED 20:23
DX: S72.002A Fracture of unspecified part of neck of left femur, initial encounter for closed fracture (principal); C20 Malignant neoplasm of rectum; G30.9 Alzheimer's disease, unspecified; F02.80 Dementia in other diseases classified elsewhere, unspecified severity, without behavioral disturbance, psychotic disturbance, mood disturbance, and anxiety; Z96.653 Presence of artificial knee joint, bilateral; Z20.822 Contact with and (suspected) exposure to COVID-19; W08.XXXA Fall from other furniture, initial encounter

== ENCOUNTER 2020-10-26 16:14 | Inpatient (IN) | payer MEDICARE, BC ==
[~2020-10-26] VITALS: Ht 177.8 cm; Wt 82.3 kg
--- NOTE | 2020-10-26 21:04 | NUR ---
Report received from Cristin ADDISON from [facility]. Patient admitted swingbed via EMS to room 304. Patient alert and oriented x 4. Pleasant. Two person assist to stand and transfer to wheelchair then ambulates with 2 mod assist 50% weight bearing with walker from bathroom door to toilet. Voids and assisted into gown. Roldan hose removed. Anny FINISHER FIBERGLASS BOAT PARTS into assess. Patient then assisted via wheel chair to bed. Max assist with legs into bed and LLE elevated on pillow. Denies pain at this time. Oriented to room and call light. Has personal belongings of clothes, watch, OT adaptive rooming house operator and glasses.
[2020-10-26] MEDS ORDERED: NORCO 325 MG-7.1 TA1 PO (21:48)
[2020-10-26] MEDS ORDERED: GOOD NEIGHBOR325 MG PO (21:50)
[2020-10-26] MEDS ORDERED: PRINIVIL20 M1 PO (21:51)
--- NOTE | 2020-10-26 22:15 | NUR ---
Patient reports left and ankle pain 5/10 on pain scale and tylenol given/ice pack applied.
--- NOTE | 2020-10-27 05:41 | NUR ---
Patient has been resting with eyes closed. Awakened for am meds and tylenol given for pain prevention. States he's been sleeping well. Wash cloth given for face to cleanse around eyes. Urinal emptied.
[2020-10-27 06:06] VITALS: BP 157/85
[2020-10-27 06:45] LABS: BASO # 0.02 (0.02-0.10); EOS # 0.16 (0.04-0.40); EOS % 2.2 % (0.0-4.0); HEMATOCRIT 35.4 % (42.0-52.0); HEMOGLOBIN 11.6 g/dL (13.5-18.0); LYMPH# 1.56 (1.50-4.00); MEAN CELL VOLUME 92 fl (78-100); MEAN CORPUSCULAR HEMOGLOBIN 30 pg (27-31); MEAN CORPUSCULAR HGB CONC 33 g/dL (33-37); MEAN PLATELET VOLUME 9.6 fl (7.4-10.4); MONO # 0.83 (0.20-0.80); NEU # 4.76 (1.40-6.50); PLATELET COUNT 202 K/mm3 (130-400); RED BLOOD COUNT 3.87 M/mm3 (4.20-5.60); RED CELL DISTRIBUTION WIDTH 13.9 % (11.5-14.5); WHITE BLOOD COUNT 7.4 K/mm3 (4.8-10.8)
--- NOTE | 2020-10-27 07:00 | NUR ---
Report recieved from AZAEL Calixto.
[2020-10-27 07:31] LABS: POTASSIUM 4.2 mmol/L (3.5-5.1)
[2020-10-27 07:33] LABS: CALCIUM 8.9 mg/dL (8.3-10.5)
[2020-10-27 07:34] LABS: TOTAL PROTEIN 5.9 g/dL (6.2-8.1)
[2020-10-27 07:36] LABS: TOTAL BILIRUBIN 0.4 mg/dL (0.2-1.2)
--- NOTE | 2020-10-27 08:00 | NUR ---
Pt eating breakfast in recliner. Pt denies pain. Transfer to bathroom x1 assist using gait belt and walker with no concerns. Pt does need reminding that he must call for help before transfering. Will continue to monitor.
--- NOTE | 2020-10-27 13:27 | NUR ---
Report given to AZAEL Rees.
[2020-10-27 17:31] VITALS: BP 154/71
--- NOTE | 2020-10-27 19:00 | NUR ---
Report received from Maris Fuller RN. Pt. is supine in bed with HOB up 45 degrees, watching television. Pt. has an ice pack to his left hip and denies discomfort. A folded, 2 x 2 gauze dressing is intact to left hip. Dressing is clean and dry. Pt. was encouraged to cough and deep breath. Pt utilized incentive spirometer, with instruction and encouragement. Pt. raised platform to 1250, 5/8 attempts. Pt. will need additional encouragement to complete future task. Room orientation and safety measures reviewed with Pt.
[2020-10-28 06:18] VITALS: BP 143/69
--- NOTE | 2020-10-28 07:00 | NUR ---
Report recieved from AZAEL Stovall.
--- NOTE | 2020-10-28 08:00 | NUR ---
Pt ambulating to restroom with no concerns using a walker and gait belt. Pt needs reminding to use the call light and wait for staff to ambulate. Pt states no pain at this time. Will continue to monitor.
--- NOTE | 2020-10-28 11:30 | NUR ---
Pt reports not having a BM for about a week now. Prune juice was given per pts request with lunch and will be given again with dinner. Pt states that he believes the prune juice will work and if it doesn't at a later time he would be willing to take medication to help.
--- NOTE | 2020-10-28 13:06 | NUR ---
Pt states he feels that the prune juice is working and "another one at dinner will do the trick". Will continue to monitor.
[2020-10-28 17:57] VITALS: BP 161/66
--- NOTE | 2020-10-28 18:47 | NUR ---
Report given to AZAEL Stovall.
--- NOTE | 2020-10-28 19:00 | NUR ---
Report received from Shon Dominguez RN. Pt. is sitting in lounge chair, watching a baseball game on the television. Pt. states that he had "a pretty good day". Pt. was instructed on respiratory and incentive spirometer use (I.S.). Pt. reached the platform goal of 1250. 5/6 times. Pt. has a folded 2 x 2 gauze dressing to his left, lateral hip. The gauze is clean, dry and intact. Pt. is wearing T.E.D. hose, to his thighs, bilaterally. Pt. is currently is rating his discomfort at a "3". A cold pack was placed to his left hip and Pt. was administered Tylenol, 650 mg., p.o. Pt. informs this RN that he has a "contact" to his left eye. He states it is changed monthly by the "eye doctor" and the laundry technician came to hospital on 10/27 and changed it for him. It is not used to enhance his vision, but is used to "protect his eye". He denies need for eye drops or other interventions. Room orientation and safety measures are reviewed with Pt.
[2020-10-29 06:03] VITALS: BP 130/69
--- NOTE | 2020-10-29 10:05 | NUR ---
Patient resting in chair. A&Ox4. No c/o pain or discomfort. Eager to go home. Swallowed pills whole with water. Chair in locked position. Call light within reach.
[2020-10-29 17:05] VITALS: BP 133/74
--- NOTE | 2020-10-29 19:00 | NUR ---
Report received from Maris Fuller RN. Pt. is returning from the bathroom with stand by assistance x 1, gaitbelt and walker. Pt. has slight, staggered gait related to 50% weight bearing on his left hip. Pt. denies discomfort and need for cold pack or Tylenol. Dressing is removed from Pt.'s left hip. Incision is well approximated with 3 steri-strips intact, with dried drainage. A gauze 2 x 2 is applied with paper tape, as a protective covering. Pt. was instructed on respiratory hygiene and use of Incentive Spirometer. Pt. utilized I.S., reaching the goal platform of 1.000, 5/6 times. Pt. has personal items within reach, as he is supine in his bed. HOB is elevated to 45 degrees, per his instruction. Room orientation and safety measures reviewed.
--- NOTE | 2020-10-30 | NUR ---
Pt. sleeping with easy and snoring respirations.
--- NOTE | 2020-10-30 04:00 | NUR ---
Pt. is lying supine in bed with HOB elevated to 45 degrees. Pt. has light snoring and regular respirations.
[2020-10-30 06:25] VITALS: BP 146/70
--- NOTE | 2020-10-30 07:00 | NUR ---
Report recieved from AZAEL Stovall.
[2020-10-30 17:34] VITALS: BP 151/79
--- NOTE | 2020-10-30 19:01 | NUR ---
Report received from Michelle ADDISON. Patient up to BR with ADMINISTRATIVE SALES ASSISTANT, SBA and walker. Had a medium BM. Back to bed. Rests supine, watching TV. A/O x4. States "I have none" when asked about pain. 2x2 gauze dressing to L hip CDI. Assessment completed. Offers no complaints. Bed alarm on. Call light in reach.
--- NOTE | 2020-10-30 20:30 | NUR ---
Awakened by this nurse for HS medications. Tylenol given 650 MG for pain prevention. Takes all whole without difficulty. Denies wants or needs.
--- NOTE | 2020-10-31 05:38 | NUR ---
Rested well through the night. Awakened by staff for AM vital signs, weight and medications. Use urinal in bed through the night. Denies pain.
[2020-10-31 06:07] VITALS: BP 159/66
--- NOTE | 2020-10-31 07:07 | NUR ---
Report to Alisson ADDISON.
--- NOTE | 2020-10-31 07:10 | NUR ---
REPORT RECEIVED FROM HATTIE CASAREZ LPN.
--- NOTE | 2020-10-31 09:30 | NUR ---
PATIENT SITTING UP IN RECLINER. SHIFT ASSESSMENT COMPLETE. PATIENT ALERT AND ORIENTED X4. DENIES ANY PAIN OR DISCOMFORTS AT THIS TIME. DENIES SHORTNESS OF BREATH OR DIFFICULTIES BRAETHING. FINE CRACKLES AUSCULTATED IN RIGHT LOWER LOBE. PATIENT'S STATES "HE'S GOT SOME CRACKLES IN HIS LUNGS" PATIENT'S CALLL LIGHT WITHIN REACH. ALARM ON.
--- NOTE | 2020-10-31 12:23 | NUR ---
Sana VELASQUEZ APRN IN WITH PATIENT AT THIS TIME.
[2020-10-31 17:20] VITALS: BP 169/74
--- NOTE | 2020-10-31 18:50 | NUR ---
REPORT GIVEN TO HATTIE CASAREZ LPN
--- NOTE | 2020-10-31 19:17 | NUR ---
Report received from Alisson ADDISON. Patient sitting up in recliner with legs elevated. Watching [employer] on TV. A/O x4. Denies pain. Assessment completed. 2x2 gauze dressing CDI. Denies wants or needs at this time.
--- NOTE | 2020-10-31 20:15 | NUR ---
HS medications taken whole. PRN Tylenol given for pain control and PRN Miralax given. Ambulated with SBA and walker to with assist of MANAGER INSURANCE. Voids and had a medium Soft BM.
[2020-11-01 06:38] VITALS: BP 148/75
--- NOTE | 2020-11-01 06:46 | NUR ---
Rested well all shift. Used urinal through the night. Denied pain.
--- NOTE | 2020-11-01 07:08 | NUR ---
Report to Fay ADDISON.
[2020-11-01 08:53] LABS: BASO # 0.05 (0.02-0.10); EOS # 0.26 (0.04-0.40); EOS % 3.6 % (0.0-4.0); HEMATOCRIT 40.2 % (42.0-52.0); HEMOGLOBIN 12.7 g/dL (13.5-18.0); LYMPH# 1.18 (1.50-4.00); MEAN CELL VOLUME 94 fl (78-100); MEAN CORPUSCULAR HEMOGLOBIN 30 pg (27-31); MEAN CORPUSCULAR HGB CONC 32 g/dL (33-37); MONO # 0.39 (0.20-0.80); NEU # 5.29 (1.40-6.50); PLATELET COUNT 353 K/mm3 (130-400); RED BLOOD COUNT 4.26 M/mm3 (4.20-5.60); WHITE BLOOD COUNT 7.2 K/mm3 (4.8-10.8)
[2020-11-01 09:00] LABS: ALBUMIN 3.2 g/dL (3.4-4.8); POTASSIUM 4.4 mmol/L (3.5-5.1)
[2020-11-01 09:01] LABS: CALCIUM 9.3 mg/dL (8.3-10.5)
[2020-11-01 09:03] LABS: TOTAL PROTEIN 6.5 g/dL (6.2-8.1)
[2020-11-01 09:04] LABS: TOTAL BILIRUBIN 0.4 mg/dL (0.2-1.2)
[2020-11-01 17:44] VITALS: BP 183/71
--- NOTE | 2020-11-01 19:15 | NUR ---
Report received from Fay ADDISON. Patient ambulated in hallway at shift change with GETTER FILLER. Tolerated well. Sittin up in recliner, legs elevated, watching TV. A/O x4. Denies pain. Dressing to L hip CDI. Fine crackles noted in bilateral lower lobes. Patient states "there is always some". This nurse did not hear yesterday. I.S. added to be done Q 1 hour W/A. Pulled 750 ML x10. No cough or edema noted. Assessment completed. Denies wants or needs at this time
--- NOTE | 2020-11-02 02:01 | NUR ---
Resting well. No complaints of pain. Calls to have urinal emptied. Does have some incontinence vs spillage at times.
--- NOTE | 2020-11-02 05:39 | NUR ---
Rested well all night. Awakened by staff for AM vital signs and AM PO medications. Denies pain or need for analgesic. Brief, gown and bed pad damp. Fresh ones provided.
[2020-11-02 06:05] VITALS: BP 159/80
--- NOTE | 2020-11-02 06:57 | NUR ---
Report to Nicole ADDISON.
--- NOTE | 2020-11-02 08:30 | NUR ---
Patient resting in chair. A&Ox4, no c/o pain or discomfort. Reports he slept well last night stating, "it's been the best sleep since I got here." Patient eager to work with therapy after breakfast. Swallowed pills whole with water. Chair in locked position. Call light within reach.
--- NOTE | 2020-11-02 11:39 | NUR ---
Dr. Raines's nurse called to schedule f/u apt. Apt. scheduled for 11/22/20 at 1330 at [facility]. Will see ARUN Suaerz at that time.
[2020-11-02 17:34] VITALS: BP 140/71
[2020-11-03 05:48] VITALS: BP 156/70
--- NOTE | 2020-11-03 07:00 | NUR ---
REPORT RECIEVED FROM AZAEL BRIGHT.
--- NOTE | 2020-11-03 07:14 | NUR ---
REPORT GIVEN TO BRITTANY ADDISON
[2020-11-03 17:10] VITALS: BP 162/77
--- NOTE | 2020-11-03 19:00 | NUR ---
Report received from Nicole ADDISON.
--- NOTE | 2020-11-03 21:00 | NUR ---
Patient rests in bed watching TV. Alert and oriented x 4. Denies pain. HS meds reviewed and given. Denies need for pain med.
--- NOTE | 2020-11-04 05:38 | NUR ---
Awakened for am meds and vitals. States "I must have" to question if slept well tonight.
[2020-11-04 06:00] VITALS: BP 153/69
--- NOTE | 2020-11-04 08:24 | NUR ---
Patient resting in chair eating breakfast. A&Ox4, no c/o pain or discomfort. Reports he slept well last night. Pleasant mood with staff. SBA with gaitbelt and walker to restroom. Minimal assist with AM cares. Chair in locked position. Call light within reach.
[2020-11-04 17:42] VITALS: BP 150/73
--- NOTE | 2020-11-04 19:00 | NUR ---
Report given to Marily ADDISON
--- NOTE | 2020-11-04 19:00 | NUR ---
Report received from Nguyen ADDISON. meds all reviewed and given. Denies pain. Sits up in recliner watching baseball game on TV.
--- NOTE | 2020-11-05 01:48 | NUR ---
Patient has been resting quietly in bed with eyes closed. Ambulated from chair and rested self back in bed at 2100 with CGA and walker.
--- NOTE | 2020-11-05 05:40 | NUR ---
Patient has been resting with eyes closed. Awakened for am meds and vitals. States he rested well tonight. Used urinal earlier and spilled and assisted to clean and apply clean pullup. Denies pain.
[2020-11-05 05:51] VITALS: BP 164/66
--- NOTE | 2020-11-05 07:30 | NUR ---
Report received from Marily Kraft RN. Pt awake and a/o x 3, resting in recliner chair.
--- NOTE | 2020-11-05 08:30 | NUR ---
in room, visiting with pt. Pt reading the paper and watching the news.
--- NOTE | 2020-11-05 15:30 | NUR ---
Report given to Omayra Rahman RN. Pt has been resting in chair watching a foot ball game on TV. was at pt's side from approx [id number].
[2020-11-05 17:26] VITALS: BP 160/65
--- NOTE | 2020-11-05 19:00 | NUR ---
Report to JOEL Moctezuma.
--- NOTE | 2020-11-05 19:08 | NUR ---
Report received from Mandi ADDISON. Patient sitting up in recliner working on a puzzle book. A/O x4. Denies pain. Incision t L hip W/A and GIANA. States he is ready to go for a walk, RN ANESTHESIOLOGY notified. Denies further wants or needs.
--- NOTE | 2020-11-05 19:15 | NUR ---
Ambulating in lange with FILEMAKER DEVELOPER. SBA with walker. Gait steady with walker.
--- NOTE | 2020-11-06 05:27 | NUR ---
Has been resting well. Awakened for AM medications and vitals. Incontinent of urine. Up to BR. Paula-cares provided. Denies pain.
[2020-11-06 05:28] VITALS: BP 153/76
--- NOTE | 2020-11-06 07:08 | NUR ---
Report to Olesya Cam RN.
--- NOTE | 2020-11-06 07:12 | NUR ---
Report received from Rhianna MALDONADO
--- NOTE | 2020-11-06 13:19 | NUR ---
Report recieved by Christal Cam RN
[2020-11-06 17:03] VITALS: BP 144/79
--- NOTE | 2020-11-06 19:00 | NUR ---
Report received from Nicole ADDISON.
--- NOTE | 2020-11-06 20:15 | NUR ---
Patient rests in bed. Alert and oriented x 4. Denies pain. States wants to sleep with his shirt on. HS meds reviewed and given.
--- NOTE | 2020-11-07 01:14 | NUR ---
Patient has been resting with eyes closed. Respirations with ease.
--- NOTE | 2020-11-07 05:30 | NUR ---
Patient has been resting with eyes closed on hourly rounds. Awakened at this time for vitals/meds. Denies needs.
[2020-11-07 06:34] VITALS: BP 153/80
--- NOTE | 2020-11-07 07:00 | NUR ---
REPORT RECEIVED FROM AZAEL BENTLEY. PATIENT CURRENTLY RESTING IN BED WITH EYES CLOSED. CALL LIGHT WITHIN REACH, BED ALARM ON.
--- NOTE | 2020-11-07 12:18 | NUR ---
Spoke with Toño today and he is ready to go home. He signed the [employer] form. We talked about home health. He is not sure if that is necessary.
--- NOTE | 2020-11-07 16:30 | NUR ---
PATIENT TEARFUL STATING HE WANTS TO GO HOME. SPOKE WITH PROVIDER ABOUT PATIENTS CONCERNS. PROVIDER ADDRESSED CONCERNS WITH PATIENTS. AT BEDSIDE. PATIENT AND VERBILIZED UNDERSTANDING. PATIENT IS CURRENTLY RESTING IN BED, REAMINS TEARFUL. CALL LIGHT WITHIN REACH.
[2020-11-07 17:15] VITALS: BP 146/72
--- NOTE | 2020-11-07 19:00 | NUR ---
Report received from Flakita MALDONADO.
--- NOTE | 2020-11-07 20:10 | NUR ---
Patient resting in bed,drowsy, watching TV. in visiting. HS meds reviewed and given. Urinal emptied. Denies pain or needs.
--- NOTE | 2020-11-08 05:30 | NUR ---
Patient awakened for am meds/vitals. Denies needs.
[2020-11-08 06:15] VITALS: BP 154/72
--- NOTE | 2020-11-08 07:00 | NUR ---
Report recieved from AZAEL Calixto.
[2020-11-08 17:57] VITALS: BP 160/83
--- NOTE | 2020-11-08 19:30 | NUR ---
Report received from Michelle ADDISON. Patient rings call light. Sitting up in recliner and requests to go to bed at this time. DOG BATHER in to assist with I.S. and HS cares. Pulls 800 ML of I.S. Reports pain to his L groin area. States he "walked a few times and used that pedal thing downstairs". HS medications and PRN Tylenol taken at this time. Assessment completed. Incision to L hip area W/A and healed. BONY hose in place to BLE and patient requests to leave on in bed.
--- NOTE | 2020-11-09 06:09 | NUR ---
Rested well through the night. Denies pain this AM or need for analgesic. AM medications taken without difficulty.
[2020-11-09 06:11] VITALS: BP 153/69
--- NOTE | 2020-11-09 07:05 | NUR ---
REPORT RECEIVED FROM HATTIE MALDONADO.
--- NOTE | 2020-11-09 07:45 | NUR ---
SITTING IN CHAIR, WORKING ON WORD PUZZLE. DENIES PAIN, BUT DOES MENTION LT GROIN DISCOMFORT HE EXPERIENCED LAST NIGHT. BELIEVES HE OVERWORKED HIS MUSCLES YESTERDAY. DISCUSS PAIN CONTROL WITH MEDICATION AND ZHAO OFFER K-PAD. AT THIS TIME PATIENT DECLINES OFFER, BUT VERBALLY CONFIRMS THAT HE WILL SPEAK UP IF INTERVENTION NEEDED THROUGH THE DAY. LT LATERAL THIGH INCISION APPEARS INTACT AND WITH MINIMAL EDEMA PROXIMALLY.
[2020-11-09 17:24] VITALS: BP 135/74
--- NOTE | 2020-11-09 18:57 | NUR ---
REPORT PROVIDED TO HATTIE MALDONADO.
--- NOTE | 2020-11-09 19:11 | NUR ---
Report received from Rossy ADDISON. Resting supine in bed watching TV. A/O x4. Denies pain. Incision to L hip GIANA W/A. Healed. BONY hose in place to BLE. Grimaces some when LLE moved to assess pulses. Assessment completed. Bed alarm on. Call light and urinal in reach.
--- NOTE | 2020-11-10 05:20 | NUR ---
Rested well all night. Used urinal in bed. Denies pain. AM medications taken.
[2020-11-10 05:22] VITALS: BP 139/71
--- NOTE | 2020-11-10 06:54 | NUR ---
Report to Nicole ADDISON.
--- NOTE | 2020-11-10 08:26 | NUR ---
Patient resting in chair eating breakfast. Reports he slept well last night. Eager to go home. Asking if he gets to go home today. No c/o pain or discomfort. Pleaseant with staff. Chair in locked position. Call light within reach.
--- NOTE | 2020-11-10 09:30 | NUR ---
Patient's at nurse's station requesting to see someone from physical therapy. When told they are not on the floor, she asked to go downstairs to the physical therapy department. Patient's upset stating, "I need to talk to her now!" Reasured someone will be in to talk with the patient and his when available. school lunch manager notified of the gruevance. Will see patient.
--- NOTE | 2020-11-10 13:24 | NUR ---
Notified by nursing staff that pt's was visiting earlier today and was upset and requeseted to speak with Mayra Hussein OT. This CM and nursing staff spoke wiht Mayra Hussein and she had not yet seen pt's . When asked if pt would be appropriate for discharge, she stated as long as he uses his walker. This CM previously spoke with ERIBERTO Guajardo and she felt pt would benefit from additional SWB days. Pt voiced desire to leave earlier in the week but after discussion was agreeable to remain in SWB. Spoke with pt today and he voiced that he still wanted to return home. States that his would be back later and requested that this CM come back and speak with them when she returned.
[2020-11-10 14:12] VITALS: BP 130/68
--- NOTE | 2020-11-10 14:40 | NUR ---
Called pt's , Roxanne (ph# [phone]) to follow up on her discussion with the nurses earlier. She reports that she was upset because they did not know where Mayra Hussein OT was. Discussed that pt continued to voice desire to be discharged. Roxanne stated that she knew he wanted to be discharged and that she was hoping she could take him home next Friday. She has something on Friday and was concerned that we would be ready to discharge him after the SWB meeting on Friday. Reassured her that normally if someone is ready for discharge at the Friday meeting that we aim for a discharge date of the following but that I would let provider and the other CM know that they are hoping for a Friday discharge. Pt previously very eager to go home. Confirmed that Roxanne did not want pt to be discharged today. She stated that she still had some stuff to prepare at their home and that she thinks Friday would be better. Per PT, pt would benefit from additional SWB days but if he is adament about discharge, he can be discharged with Home Health. Updated pt on phone call with his . He was tearful but verbalized understanding. Encouraged him to give it another couple of days. Discussed with nursing that pt would benefit from some time outside if possible over the weekend. Primary nurse updated.
--- NOTE | 2020-11-10 19:00 | NUR ---
Report received from Maris Fuller RN. Pt. is sitting up in lounge chair watching TV, with foot rest elevatated. Pt. denies any discomfort at this time. His surgical site is well approximated and without s/sx of infection. Site is open to air. Pt. is pleasant and cordial with assessment. Pt.'s personal items are within reach. Room orientation and safety measures are reviewed with Pt.
[2020-11-11 05:46] VITALS: BP 123/67
--- NOTE | 2020-11-11 08:00 | NUR ---
REPORT RECEIVED FROM HAZEL. PATIENT IS RESTING IN BED, BREATHING EVEN AND UNABLORED. WILL MONITOR
[2020-11-11 18:18] VITALS: BP 119/66
--- NOTE | 2020-11-11 18:22 | NUR ---
Patient has ambulated in lange with staff several times during the sift. He has reported no pain. His has been up to see him several times and plans to return for lunch tomorrow.
--- NOTE | 2020-11-11 19:00 | NUR ---
Report received from Gabby Han RN. Pt. is sitting in lounge chair, watching the baseball game. Pt. is talkative and pleasant during assessment. Pt.'s surgical incision to left hip is well approximated, without drainage and open to air. Pt. denies discomfort. Pt. has both an Incentive Spirometer (I.S.) and an Acappella. Pt. utilized I.S. to platform goal to 1250 4/5 times and utilized Acappella x 6. Pt.'s personal items are within reach. Room orientation and safety measures reviewed.
--- NOTE | 2020-11-12 00:10 | NUR ---
Pt. is sleeping, supine in his bed, with easy and regular snoring respirations. Night light is on. Personal items and call light are within reach.
[2020-11-12 06:16] VITALS: BP 131/69
--- NOTE | 2020-11-12 07:00 | NUR ---
REPORT RECEIVED FROM HAZEL Pierre RN.
--- NOTE | 2020-11-12 17:30 | NUR ---
PATIENT PLEASENT THROUGH OUR SHIFT WITH CARES. PATIENT EAGER TO WALK THE HALLS TODAY. PATIENT CURRENTLY UP TO CHAIR WITH TV ON. PRESENT IN ROOM. PATIENT DENIES ANY NEEDS OR COMPLAINTS. CALL LIGHT WITHIN REACH. CHAIR ALARM ACTIVE.
[2020-11-12 17:50] VITALS: BP 136/75
--- NOTE | 2020-11-12 19:27 | NUR ---
Report received from Flakita ADDISON. Patient sitting up in chair watching TV and working on a puzzle book. A/O x4. Denies pain. Incision to L hip W/A healed. Assessment completed. HS snack provided per request. Using I.S. pulls about 750 ML x10 reps. Call light in place.
--- NOTE | 2020-11-13 01:59 | NUR ---
Resting quietly. No signs of pain or distress.
--- NOTE | 2020-11-13 05:29 | NUR ---
AM medication taken now. Denies pain. Used urinal all shift.
[2020-11-13 05:45] VITALS: BP 145/71
--- NOTE | 2020-11-13 07:02 | NUR ---
Report to Natalee ADDISON.
--- NOTE | 2020-11-13 07:15 | NUR ---
Report received from JOEL Moctezuma. Pt sitting up in recliner, awaiting breakfast. Pt denies any pain or discomfort at this time. Pt with flat affect. Call light in reach. Chair alarm in place.
--- NOTE | 2020-11-13 16:20 | NUR ---
Pt resting in bed. Appropriately used call light to request assistance to bathroom. Pt ambulated with 1 person, SBA and FWW to restroom. Pt denies pain or discomfort at this time. Pt returned to recliner. Call light in reach. Chair alarm in place.
[2020-11-13 18:03] VITALS: BP 114/52
--- NOTE | 2020-11-13 19:00 | NUR ---
Report received from Nicole ADDISON.
--- NOTE | 2020-11-13 20:30 | NUR ---
Patient rests in bed awake. Alert and oriented x 4. Denies pain. HS meds reviewed and taken without problems. Has urinal in place at this time.
--- NOTE | 2020-11-14 05:12 | NUR ---
Patient has been resting with eyes closed. Respirations with ease.
[2020-11-14 05:56] VITALS: BP 168/72
--- NOTE | 2020-11-14 07:08 | NUR ---
REPORT RECEIVED FROM HAZEL ADDISON.
--- NOTE | 2020-11-14 08:05 | NUR ---
AWAKE AND SITTING IN CHAIR. DRESSED. RATES PAIN 5/10 TO LT GROIN/LT UPPER THIGH. REPORTS PAIN FEELS LIKE A MUSCLE ACHE. LT HIP INCISION INTACT AND OPEN TO AIR. EXCITED TO DISCHARGE HOME TODAY. DID NOT USE A WALKER AT HOME PRIOR TO SURGERY AND HOPES TO BE ABLE TO ABANDON USE OF WALKER IN THE FUTURE, WHEN HE BECOMES STRONGER.
--- NOTE | 2020-11-14 10:34 | NUR ---
INFORMED THAT DR DUDLEY WILL ARRIVE TO PATIENT ROOM AT 1230.
--- NOTE | 2020-11-14 12:49 | NUR ---
DR DUDLEY AT BEDSIDE WITH PATIENT AND HIS .
--- NOTE | 2020-11-14 14:47 | NUR ---
PATIENT, HIS , AND MONTY MUSICAL PERFORMER HAVE DISCUSSED DISCHARGE. PATIENT AGREES TO DISCHARGE Oct.
--- NOTE | 2020-11-14 14:52 | NUR ---
Sent a referral to [facility] freely chosen by Roxanne Jamil, BEN and . Pt wants to go home on 2020.
[2020-11-14 17:20] VITALS: BP 116/66
--- NOTE | 2020-11-14 18:51 | NUR ---
REPORT PROVIDED TO HATTIE MALDONADO.
--- NOTE | 2020-11-14 19:24 | NUR ---
Report received from Rossy ADDISON. Patient up in recliner watching BB game. A/O x4. Denies pain. Assessment completed. Up to BR with 1:1 assist and walker by this nurse.
--- NOTE | 2020-11-15 04:53 | NUR ---
Sets off bed alarm FURNACE CONVERTER in room. Patient noted to have crawled out the foot of the bed and standing beside bed. FURNACE CONVERTER assisted to BR with gait belt and walker. Patient reminded that he needs to call for assist with transfers and ADL's.
[2020-11-15 05:55] VITALS: BP 154/74
--- NOTE | 2020-11-15 06:55 | NUR ---
Report to Natalee ADDISON.
--- NOTE | 2020-11-15 07:15 | NUR ---
Report received from JOEL Moctezuma. Pt sitting up in recliner. Denies pain or discomfort at this time. Pt mentioned that his son had his hip replaced yesterday and is already going home today. Received in report that pt has been getting up from bathroom without using call light. Encouraged pt to use call light if he needed anything. Call light in reach. Chair alarm on.
[2020-11-15 18:13] VITALS: BP 104/52
--- NOTE | 2020-11-15 18:56 | NUR ---
Report received from Natalee at 1700. Patient sitting up in recliner, working on [employer]le book. A/O x4. States "not really" when asked if having any pain. Patient is excited to be going home tomorrow. Assessment completed. Fine crackles noted in bilateral bases. Encouraged flutter/I.S. Denies wants or needs at this time.
--- NOTE | 2020-11-16 | NUR ---
Sleeping. No signs of pain or distress. Bed alarm on. Call light in reach.
--- NOTE | 2020-11-16 05:18 | NUR ---
Rested well all night. Denies need for analgesic. AM medication taken.
[2020-11-16 05:48] VITALS: BP 150/71
--- NOTE | 2020-11-16 07:00 | NUR ---
Report recieved from JOEL Moctezuma.
--- NOTE | 2020-11-16 07:04 | NUR ---
Report to Michelle ADDISON.
--- NOTE | 2020-11-16 08:30 | NUR ---
Pt sitting in recliner eating breakfast. Denies pain. Denies concern. States he is ready to go home!
--- NOTE | 2020-11-16 10:49 | NUR ---
[facility] will start services on Friday, Sat PT will come to evaluate and treat. will be here to take Don home today. She states she has help to get him in the house.
[2020-11-16] MEDS ORDERED: NORVASC2.5 MG PO (12:06)
--- NOTE | 2020-11-16 12:20 | NUR ---
Pt sitting in recliner eating lunch, sitting next to him. Pt denies pain or concerns. States "Just waiting to go home."
[2020-11-16] MEDS ORDERED: PROTONIX20 M1 PO (12:41)
--- NOTE | 2020-11-16 13:02 | NUR ---
Pt left facility with W[employer] INSPECTOR present. Leaving in POV with . All personal belongings taken.
--- NOTE | 2020-11-16 13:09 | NUR ---
Faxed discharge information and face 2 face to [facility] [phone]. Called [facility] and advised Mr. Jamil was discharged to home. If they needed anything to call. Someone will be there tomorrow and pt will be there on sat.
== END 2020-11-16 13:02 | disposition home health service (06) | DRG 560 ==
LOC: MED/SURG 16:14
PROVIDERS: Physician Assistant; ADMIT Nurse Practitioner Family
DX: S72.002D Fracture of unspecified part of neck of left femur, subsequent encounter for closed fracture with routine healing (principal); I50.32 Chronic diastolic (congestive) heart failure; I25.10 Atherosclerotic heart disease of native coronary artery without angina pectoris; I25.2 Old myocardial infarction; E03.9 Hypothyroidism, unspecified; F03.90 Unspecified dementia, unspecified severity, without behavioral disturbance, psychotic disturbance, mood disturbance, and anxiety; I11.0 Hypertensive heart disease with heart failure; I95.9 Hypotension, unspecified; R53.81 Other malaise; Z66 Do not resuscitate; H54.62 Unqualified visual loss, left eye, normal vision right eye; K59.00 Constipation, unspecified; W19.XXXD Unspecified fall, subsequent encounter; Z95.0 Presence of cardiac pacemaker; Z85.038 Personal history of other malignant neoplasm of large intestine; Z92.21 Personal history of antineoplastic chemotherapy; Z92.3 Personal history of irradiation; Z96.653 Presence of artificial knee joint, bilateral; Z96.611 Presence of right artificial shoulder joint
CPT/HCPCS: J1650

== ENCOUNTER → 2020-12-07 | Outpatient (CLI) | payer MEDICARE, BC ==
[~2020-12-07] MED LIST changes: +GOOD NEIGHBOR325 MG PO; +NORCO 325 MG-7.1 TA1 PO; +NORVASC2.5 MG PO; +PRINIVIL20 M1 PO; +PROTONIX20 M1 PO
[2020-12-07 10:34] LABS: BASO # 0.03 K/mm3 (0.02-0.10); EOS % 5.4 % (0.0-4.0); HEMATOCRIT 45.3 % (42.0-52.0); HEMOGLOBIN 14.3 g/dL (13.5-18.0); MEAN CELL VOLUME 94 fl (78-100); MEAN CORPUSCULAR HEMOGLOBIN 30 pg (27-31); MEAN CORPUSCULAR HGB CONC 32 g/dL (33-37); MEAN PLATELET VOLUME 9.5 fl (7.4-10.4); MONO # 0.62 K/mm3 (0.20-0.80); NEU # 4.22 K/mm3 (1.40-6.50); PLATELET COUNT 245 K/mm3 (130-400); RED BLOOD COUNT 4.81 M/mm3 (4.20-5.60); RED CELL DISTRIBUTION WIDTH 13.3 % (11.5-14.5); WHITE BLOOD COUNT 7.4 K/mm3 (4.8-10.8)
[2020-12-07 10:38] LABS: ALBUMIN 3.7 g/dL (3.4-4.8); POTASSIUM 3.9 mmol/L (3.5-5.1)
[2020-12-07 10:39] LABS: CALCIUM 9.8 mg/dL (8.3-10.5)
[2020-12-07 10:41] LABS: TOTAL PROTEIN 6.8 g/dL (6.2-8.1)
[2020-12-07 10:42] LABS: TOTAL BILIRUBIN 0.3 mg/dL (0.2-1.2)
== END ==
LOC: LAB 09:55
PROVIDERS: Internal Medicine
DX: C20 Malignant neoplasm of rectum (principal)

== ENCOUNTER → 2020-12-11 | Outpatient (CLI) | payer MEDICARE, BC | LOC: RAD 08:57 | DX: C20 Malignant neoplasm of rectum (principal); R91.1 Solitary pulmonary nodule; N28.9 Disorder of kidney and ureter, unspecified; Z95.9 Presence of cardiac and vascular implant and graft, unspecified | CPT/HCPCS: Q9967 ==

== ENCOUNTER → 2021-01-04 | Outpatient (CLI) | payer MEDICARE, BC ==
[2021-01-04 16:09] LABS: URINE APPEARANCE HAZY; URINE BILIRUBIN NEGATIVE (NEGATIVE); URINE BLOOD TRACE (NEGATIVE); URINE COLOR YELLOW; URINE GLUCOSE NEGATIVE (NEGATIVE); URINE KETONE NEGATIVE (NEGATIVE); URINE LEUKOCYTE ESTERASE NEGATIVE (NEGATIVE); URINE NITRATE NEGATIVE (NEGATIVE); URINE PROTEIN(semi-quant) TRACE mg/dL (NEGATIVE); URINE UROBILINOGEN NORMAL (NORMAL); URINE WBC 0-1 /hpf (0-3)
== END ==
LOC: LAB 15:33
PROVIDERS: Internal Medicine
DX: N39.0 Urinary tract infection, site not specified (principal); M25.562 Pain in left knee; M79.652 Pain in left thigh; M25.552 Pain in left hip

== ENCOUNTER → 2021-03-30 | Outpatient (CLI) | payer MEDICARE, BC ==
[2021-03-30 14:07] LABS: BASO # 0.04 K/mm3 (0.02-0.10); EOS # 0.15 K/mm3 (0.04-0.40); HEMATOCRIT 42.5 % (42.0-52.0); HEMOGLOBIN 13.7 g/dL (13.5-18.0); LYMPH# 1.61 K/mm3 (1.50-4.00); MEAN CELL VOLUME 90 fl (78-100); MEAN CORPUSCULAR HEMOGLOBIN 29 pg (27-31); MEAN CORPUSCULAR HGB CONC 32 g/dL (33-37); MEAN PLATELET VOLUME 9.6 fl (7.4-10.4); MONO # 0.71 K/mm3 (0.20-0.80); NEU # 5.09 K/mm3 (1.40-6.50); PLATELET COUNT 241 K/mm3 (130-400); RED BLOOD COUNT 4.72 M/mm3 (4.20-5.60); RED CELL DISTRIBUTION WIDTH 13.9 % (11.5-14.5); WHITE BLOOD COUNT 7.6 K/mm3 (4.8-10.8)
[2021-03-30 14:32] LABS: ALBUMIN 3.5 g/dL (3.4-4.8); POTASSIUM 4.4 mmol/L (3.5-5.1)
[2021-03-30 14:33] LABS: CALCIUM 8.9 mg/dL (8.3-10.5)
[2021-03-30 14:34] LABS: TOTAL PROTEIN 6.9 g/dL (6.2-8.1)
[2021-03-30 14:36] LABS: TOTAL BILIRUBIN 0.2 mg/dL (0.2-1.2)
== END ==
LOC: LAB 13:18
DX: C20 Malignant neoplasm of rectum (principal); C78.01 Secondary malignant neoplasm of right lung

== ENCOUNTER → 2021-04-02 | Outpatient (CLI) | payer MEDICARE, BC | LOC: RAD 08:53 | DX: C20 Malignant neoplasm of rectum (principal); R91.1 Solitary pulmonary nodule; K57.30 Diverticulosis of large intestine without perforation or abscess without bleeding; E27.8 Other specified disorders of adrenal gland; N28.1 Cyst of kidney, acquired | CPT/HCPCS: Q9967 ==

== ENCOUNTER → 2021-04-10 | Outpatient (CLI) | payer MEDICARE, BC ==
[~2021-04-10] VITALS: Ht 177.8 cm; Wt 82.3 kg
[2021-04-10 14:43] VITALS: BP 131/71
== END ==
LOC: AMSURD 13:50
DX: C20 Malignant neoplasm of rectum (principal)
CPT/HCPCS: J1644

== ENCOUNTER → 2021-06-29 | Outpatient (CLI) | payer MEDICARE, BC ==
[2021-06-29 10:07] LABS: BASO # 0.02 K/mm3 (0.02-0.10); EOS # 0.13 K/mm3 (0.04-0.40); EOS % 1.8 % (0.0-4.0); HEMOGLOBIN 14.4 g/dL (13.5-18.0); LYMPH# 1.88 K/mm3 (1.50-4.00); MEAN CELL VOLUME 91 fl (78-100); MEAN CORPUSCULAR HEMOGLOBIN 29 pg (27-31); MEAN CORPUSCULAR HGB CONC 32 g/dL (33-37); MEAN PLATELET VOLUME 9.5 fl (7.4-10.4); MONO # 0.58 K/mm3 (0.20-0.80); NEU # 4.39 K/mm3 (1.40-6.50); PLATELET COUNT 215 K/mm3 (130-400); RED BLOOD COUNT 4.93 M/mm3 (4.20-5.60); RED CELL DISTRIBUTION WIDTH 14.4 % (11.5-14.5)
[2021-06-29 10:15] LABS: ALBUMIN 3.8 g/dL (3.4-4.8); POTASSIUM 4.2 mmol/L (3.5-5.1)
[2021-06-29 10:16] LABS: CALCIUM 9.3 mg/dL (8.3-10.5)
[2021-06-29 10:18] LABS: TOTAL PROTEIN 7.2 g/dL (6.2-8.1)
[2021-06-29 10:19] LABS: TOTAL BILIRUBIN 0.4 mg/dL (0.2-1.2)
[2021-06-30 01:08] LABS: LUTENIZING HORMONE 27.5 mIU/mL (0.6-12.1)
[2021-06-30 01:09] LABS: CARCINOEMBRYONIC ANTIGEN 3.8 ng/mL (0.0-5.0)
== END ==
LOC: LAB 09:43
PROVIDERS: Internal Medicine
DX: C20 Malignant neoplasm of rectum (principal)

== ENCOUNTER → 2021-07-09 | Outpatient (CLI) | payer MEDICARE, BC ==
[~2021-07-09] VITALS: Ht 177.8 cm; Wt 82.3 kg
[2021-07-09 14:19] VITALS: BP 140/74
== END ==
LOC: AMSURD 13:56
DX: C20 Malignant neoplasm of rectum (principal)
CPT/HCPCS: J1644

== ENCOUNTER → 2021-10-04 | Outpatient (CLI) | payer MEDICARE, BC ==
[~2021-10-04] MED LIST changes: +CEPHALEXIN500 M1 PO
[2021-10-04 11:11] LABS: BASO # 0.03 K/mm3 (0.02-0.10); EOS # 0.14 K/mm3 (0.04-0.40); EOS % 1.8 % (0.0-4.0); HEMATOCRIT 43.4 % (42.0-52.0); LYMPH# 1.62 K/mm3 (1.50-4.00); MEAN CELL VOLUME 92 fl (78-100); MEAN CORPUSCULAR HEMOGLOBIN 30 pg (27-31); MEAN CORPUSCULAR HGB CONC 32 g/dL (33-37); MEAN PLATELET VOLUME 9.3 fl (7.4-10.4); MONO # 0.82 K/mm3 (0.20-0.80); NEU # 5.23 K/mm3 (1.40-6.50); PLATELET COUNT 201 K/mm3 (130-400); RED BLOOD COUNT 4.71 M/mm3 (4.20-5.60); RED CELL DISTRIBUTION WIDTH 14.1 % (11.5-14.5); WHITE BLOOD COUNT 7.9 K/mm3 (4.8-10.8)
[2021-10-04 11:16] LABS: ALBUMIN 3.8 g/dL (3.4-4.8); POTASSIUM 3.9 mmol/L (3.5-5.1)
[2021-10-04 11:17] LABS: CALCIUM 8.9 mg/dL (8.3-10.5)
[2021-10-04 11:19] LABS: TOTAL PROTEIN 6.8 g/dL (6.2-8.1)
[2021-10-04 11:20] LABS: TOTAL BILIRUBIN 0.4 mg/dL (0.2-1.2)
[2021-10-05 11:18] LABS: CARCINOEMBRYONIC ANTIGEN 3.2 ng/mL (0.0-5.0)
== END ==
LOC: LAB 10:36
PROVIDERS: Internal Medicine
DX: C19 Malignant neoplasm of rectosigmoid junction (principal); E11.9 Type 2 diabetes mellitus without complications; K90.9 Intestinal malabsorption, unspecified; E03.4 Atrophy of thyroid (acquired); M25.552 Pain in left hip

== ENCOUNTER 2021-10-09 09:28 | Emergency (ER) | payer MEDICARE, BC ==
[~2021-10-09] VITALS: Ht 172.7 cm; Wt 83.2 kg
[~2021-10-09 09:28] MED LIST changes: -CEPHALEXIN500 M1 PO
[2021-10-09 10:36] LABS: BASO # 0.03 K/mm3 (0.02-0.10); EOS # 0.05 K/mm3 (0.04-0.40); EOS % 0.5 % (0.0-4.0); HEMATOCRIT 40.2 % (42.0-52.0); HEMOGLOBIN 12.9 g/dL (13.5-18.0); LYMPH# 0.79 K/mm3 (1.50-4.00); MEAN CELL VOLUME 93 fl (78-100); MEAN CORPUSCULAR HEMOGLOBIN 30 pg (27-31); MEAN CORPUSCULAR HGB CONC 32 g/dL (33-37); MEAN PLATELET VOLUME 9.7 fl (7.4-10.4); MONO # 1.19 K/mm3 (0.20-0.80); NEU # 7.78 K/mm3 (1.40-6.50); PLATELET COUNT 168 K/mm3 (130-400); RED BLOOD COUNT 4.32 M/mm3 (4.20-5.60); WHITE BLOOD COUNT 9.9 K/mm3 (4.8-10.8)
[2021-10-09 10:39] LABS: ALBUMIN 3.5 g/dL (3.4-4.8)
[2021-10-09 10:40] LABS: POTASSIUM 3.7 mmol/L (3.5-5.1)
[2021-10-09 10:41] LABS: CALCIUM 8.9 mg/dL (8.3-10.5)
[2021-10-09 10:42] LABS: TOTAL PROTEIN 6.5 g/dL (6.2-8.1)
[2021-10-09 10:44] LABS: TOTAL BILIRUBIN 0.6 mg/dL (0.2-1.2)
[2021-10-09] MEDS ORDERED: CEPHALEXIN500 M1 PO (12:07)
[2021-10-09 12:30] VITALS: BP 153/69
== END 2021-10-09 12:35 | disposition home or self-care (01) ==
LOC: ED 09:28
PROVIDERS: Nurse Practitioner
DX: L03.115 Cellulitis of right lower limb (principal)

== ENCOUNTER → 2021-10-16 | Outpatient (CLI) | payer MEDICARE, BC ==
[~2021-10-16] VITALS: Ht 172.7 cm; Wt 83.2 kg
[~2021-10-16] MED LIST changes: +CEPHALEXIN500 M1 PO
[2021-10-16 11:00] VITALS: BP 135/76
== END ==
LOC: AMSURD 09:46
DX: C20 Malignant neoplasm of rectum (principal)
CPT/HCPCS: J1644

== ENCOUNTER → 2021-12-11 | Outpatient (CLI) | payer MEDICARE, BC ==
[~2021-12-11] VITALS: Ht 172.7 cm; Wt 83.2 kg
[2021-12-11 09:00] VITALS: BP 141/111
== END ==
LOC: AMSURD 08:49
DX: C20 Malignant neoplasm of rectum (principal)
CPT/HCPCS: J1644

== ENCOUNTER → 2022-04-15 | Outpatient (CLI) | payer MEDICARE, BC ==
[~2022-04-15] VITALS: Ht 172.7 cm; Wt 83.2 kg
[2022-04-15 14:17] VITALS: BP 167/94
== END ==
LOC: AMSURD 13:49
DX: C20 Malignant neoplasm of rectum (principal)
CPT/HCPCS: J1644

== ENCOUNTER → 2022-05-09 | Outpatient (CLI) | payer MEDICARE, BC ==
[2022-05-09 11:46] LABS: BASO # 0.02 K/mm3 (0.02-0.10); EOS # 0.09 K/mm3 (0.04-0.40); EOS % 1.2 % (0.0-4.0); HEMATOCRIT 46.2 % (42.0-52.0); HEMOGLOBIN 14.9 g/dL (13.5-18.0); LYMPH# 1.77 K/mm3 (1.50-4.00); MEAN CELL VOLUME 91 fl (78-100); MEAN CORPUSCULAR HEMOGLOBIN 29 pg (27-31); MEAN CORPUSCULAR HGB CONC 32 g/dL (33-37); MEAN PLATELET VOLUME 9.5 fl (7.4-10.4); MONO # 0.76 K/mm3 (0.20-0.80); NEU # 4.59 K/mm3 (1.40-6.50); PLATELET COUNT 224 K/mm3 (130-400); RED BLOOD COUNT 5.09 M/mm3 (4.20-5.60); WHITE BLOOD COUNT 7.3 K/mm3 (4.8-10.8)
[2022-05-09 11:52] LABS: ALBUMIN 3.8 g/dL (3.4-4.8); POTASSIUM 4.4 mmol/L (3.5-5.1)
[2022-05-09 11:53] LABS: CALCIUM 9.1 mg/dL (8.3-10.5)
[2022-05-09 11:55] LABS: TOTAL PROTEIN 6.8 g/dL (6.2-8.1)
[2022-05-09 11:56] LABS: TOTAL BILIRUBIN 0.2 mg/dL (0.2-1.2)
[2022-05-09 12:01] LABS: MAGNESIUM 1.7 mg/dL (1.60-2.60)
== END ==
LOC: LAB 11:21
PROVIDERS: Internal Medicine
DX: C19 Malignant neoplasm of rectosigmoid junction (principal); G47.33 Obstructive sleep apnea (adult) (pediatric); E11.9 Type 2 diabetes mellitus without complications; K90.9 Intestinal malabsorption, unspecified; E03.4 Atrophy of thyroid (acquired); I10 Essential (primary) hypertension; E78.5 Hyperlipidemia, unspecified; J98.4 Other disorders of lung; R06.00 Dyspnea, unspecified; M10.9 Gout, unspecified; M25.552 Pain in left hip; M19.90 Unspecified osteoarthritis, unspecified site